=== PATIENT | female | born 1930 | race Caucasian/White ===

== ENCOUNTER → 2016-08-13 | Outpatient (CLI) | payer MEDICARE ==
--- NOTE | 2016-08-14 09:37 | RAD ---
Left lower extremity venous Doppler. History: Left lower extremity swelling, history of PE. Real-time imaging with compression, color Doppler and spectral Doppler with augmentation were utilized to evaluate the veins the left lower extremity. There is color flow in the common femoral, femoral, greater saphenous and popliteal veins. There is normal antegrade flow with augmentation. The femoral, common femoral, and popliteal veins are compressible. There is flow with color imaging and augmentation in the calf veins. Impression: 1. Left lower extremity venous Doppler negative for acute deep venous thrombosis.
== END | disposition home or self-care (01) ==
LOC: US 16:50
PROVIDERS: ATTEND Family Medicine
DX: R60.0 Localized edema (principal); I87.1 Compression of vein; Z86.711 Personal history of pulmonary embolism
CPT/HCPCS: 93971

== ENCOUNTER → 2016-09-24 | Outpatient (CLI) | payer MEDICARE ==
[~2016-09-24] MED LIST: IOHEXOL 180 MG/ML 10 ML VIAL. ONE; methylPREDNISolone ACETATE 40 MG/ML VIAL. ONE; methylPREDNISolone ACETATE 80 MG/ML VIAL. ONE
--- NOTE | 2016-09-25 09:46 | PAIN ---
DATE OF SERVICE: 09/24/2016 INITIAL CONSULTATION FOR PAIN CLINIC CHIEF COMPLAINT: Low back and left lower extremity pain. HISTORY OF PRESENT ILLNESS: This is an 86-year-old female who presents with history of pain in the low back and left lower extremity for approximately 4 months now with increasing pain across the low back and the left leg. She reports that she fell back in 02/2016, hit her face and her main complaint was face and neck pain. However, over time, this has resolved and is feeling well, but the pain in her low back is becoming more and more noticeable, especially over the last 4 months or so. The patient reports it is across the low back bilaterally, into the left lower extremity, mostly in the lateral and anterior aspect of the thigh over the knee into the medial lower leg and into the ankle with pain and burning, numbness in her foot on the left side, hurts constantly, is not exacerbated significantly constantly but is always present. The patient reports it is sharp, stabbing, throbbing, radiating, burning and aching as well. She sleeps well, however, and feels much better with lying down, much worse with standing up or sitting up. She says with changing positions from sitting to standing and getting out of bed in the morning has significant pain as well and radiating to the left lower extremity. No significant pain radiating to the right lower extremity. The patient reports no loss of motor function in the lower extremities, but significant fatigability with walking even a few steps with the left leg. She is using a wheelchair whenever she can or a cane or a walker, and she has all of these at her access. The patient reports it does not awaken her from sleep at night, most nights she sleeps well, does not affect her bowel or bladder control, but does affect her ability to walk significantly, again using walkers, wheelchairs and canes to ambulate. The patient did have an MRI scan of the lumbar spine on 07/27/2016, showing some [id number] diffuse lumbar spondylosis with some old compression fractures at L2 and L3. At the L4-L5, 2 mm anterolisthesis, mild diffuse disk bulging at both neural foramina contributing to moderately severe bilateral foraminal narrowing exaggerated due to moderate bilateral facet arthropathy, no discrete herniation. L5-S1 shows diffuse disk bulge, but no evidence of herniation or central stenosis, bilateral foraminal narrowing with anterolisthesis and severe bilateral facet arthropathy and foraminal narrowing, moderately severe on the right and severe on the left. The patient rates her disability from 0 to 10, 10 being the worst, as a 10 with family and home responsibility, 0 with recreation, 8 with social activity, 10 with occupation and 9 with self-care. The patient has been taking naproxen, gabapentin, Tylenol as well as diclofenac cream for her knees, and the naproxen and gabapentin have been helping her pain decrease fairly significantly about 30% to 40% by her estimation without side effects. The patient reports no other motor or sensory deficits, no other complaints. PAST MEDICAL HISTORY: Significant for hypertension, COPD, shortness of breath and home oxygen use at night, history of DVTs and blood clots, arthritis. PREVIOUS SURGERY: Includes bilateral total knee replacements and cataract extractions. CURRENT MEDICATIONS: Include vitamin D; naproxen; vitamin B12; citalopram; amlodipine; Xarelto, which has been discontinued; Flovent and Singulair inhalers as well. The patient reports she has been off of all of her blood thinners for more than 3 months and was on Coumadin after her knee replacement, but this was in 2007. ALLERGIES: The patient has no known drug allergies. FAMILY HISTORY: Significant for no major medical problems or conditions that she is aware of. SOCIAL HISTORY: The patient does not drink alcohol, does not smoke. She is , lives with her spouse at home and she takes care of her . who has Alzheimer's disease. She is otherwise retired and lives locally. REVIEW OF SYSTEMS: The patient's review of systems is positive for those items mentioned in the history of present illness. All systems were reviewed and are otherwise negative. It is complete, full and well documented on the patient's chart. PHYSICAL EXAMINATION: VITAL SIGNS: Today, the patient's blood pressure is 118/61, pulse is 73, respirations are 20, temperature is 98.0 degrees Fahrenheit. Height is 64 inches and weight is 166 pounds. GENERAL: The patient is awake, alert, oriented and appropriate, very pleasant demeanor. HEENT: Shows normocephalic and atraumatic. Extraocular movements are intact, symmetrical. Oral cavity, mucous membranes are moist and pink. Dentition is intact. NECK: Shows anterior throat supple without palpable lymphadenopathy noted. Swallow reflex is symmetrical. Neck shows full rotational motion of the cervical spine without difficulty or tenderness including extension, flexion and lateral rotation greater than 45 degrees, right and left. CHEST: Shows normal to inspection. Breath sounds are clear to auscultation bilaterally. HEART: Shows S1 and S2 clear. No auscultated murmurs. ABDOMEN: Normal on inspection. Soft, nontender and nondistended with palpation. No rebound or guarding demonstrated. No organomegaly detected. BACK: The patient's back shows spine grossly midline. Slight exaggeration of thoracic kyphosis and mild flattening of lumbar lordotic curvature. No previous bruises, lesions, rashes or scars are noted. Lumbar paraspinous musculature shows symmetrical on inspection with palpation, shows moderate tenderness with palpation bilaterally in the middle and lower distribution, some tenderness over the spinous processes in the middle distribution as well, but only very mildly in the lower distribution. No tenderness over the spinous processes. The patient's musculature is firm and normal in muscle girth and symmetrical, but without significant radiation, but moderate tenderness with palpation diffusely. No tenderness over the sacrum or the sacroiliac regions. The patient does show good rotational motion of the lumbar spine, both laterally as well as extension and flexion, greater than 10 degrees right and left in extension as well as forward flexion to 45 degrees without significant pain reported. EXTREMITIES: The patient's lower extremities showed deep tendon reflexes 1+ in the patellar and tendocalcaneus tendons. Motor exam is approximately 4 on a scale of 5 with left dorsiflexion and extension and 5 out of 5 on the right. Likewise, quadriceps and hamstring flexion is 4 out of 5 left, 5 out of 5 on the right, but intact. Peripheral pulses are 1+ posterior tibial and dorsalis pedis pulses. No peripheral edema is noted. No clubbing, no cyanosis. Lower extremities are warm and dry to touch, equal in color and appearance. Straight leg raise noted to be positive on the left at about 35 degrees leg raise with significant decrease that is in pain with knee flexion. The patient is able to stand, has difficulty standing from her seated position as it is difficult for her to get up from her wheelchair, but she is able to do this on her own power. She is unable to stand on her toes as she is too worried about falling as she does feel unstable. She has a significant shuffling gait and prefers to use a walker when she is ambulating. IMPRESSION: 1. This is an 86-year-old female with approximate 4-month history of increasing low back pain and left lower extremity pain in a radicular fashion. 2. MRI scan of the lumbar spine as noted. 3. Hypertension. 4. Chronic obstructive pulmonary disease. PLAN: Options were discussed with the patient and the patient's daughter and her , who accompanied her to visit today, including conservative medical management, physical therapy, interventional techniques, and she would like to pursue interventional techniques. We discussed a lumbar epidural steroid injection using description as well as anatomical models to describe the procedure. Risks were then discussed including but not limited to bleeding, infection, possibility of epidural hematoma and subsequent neurologic compromise, dural puncture, headaches, spinal cord and/or nerve damage, side effects of steroid medication, and poor results regarding pain control. The patient understands and wishes to proceed. The patient will return to clinic in approximately 2 weeks for followup, was counseled on return appointment, activity level, and side effects to be aware of. DIAGNOSES: Lumbar radiculopathy with lumbar spondylosis and lumbar degenerative disk disease. PROCEDURE: Lumbar epidural steroid injection, translaminar approach, at the L4-5 level with C-arm fluoroscopic guidance under sterile prep and drape using local anesthetic. MEDICATIONS INJECTED: 120 mg of Depo-Medrol plus 10 mL of preservative-free normal saline. CONDITION AT DISCHARGE: Stable. The patient tolerated the procedure well, had no complications. NORI HICKS MD DR: KALA/vinita JOB#: [id number] / [id number] YAYA Isaacs MD
== END | disposition home or self-care (01) ==
LOC: PNCL 09:28
PROVIDERS: ATTEND Anesthesiology
DX: M51.16 Intervertebral disc disorders with radiculopathy, lumbar region (principal); M47.16 Other spondylosis with myelopathy, lumbar region; I10 Essential (primary) hypertension; J44.9 Chronic obstructive pulmonary disease, unspecified; M19.90 Unspecified osteoarthritis, unspecified site
CPT/HCPCS: 62323; J1030; J1040

== ENCOUNTER → 2016-10-08 | Outpatient (CLI) | payer MEDICARE ==
[~2016-10-08] MED LIST changes: +AMLO5TAB2 PO; +CITA20TA5 PO; +GABA-585 PO; +NAPR375T3 PO
--- NOTE | 2016-10-09 01:22 | PAIN ---
DATE OF SERVICE: 10/08/2016 PROGRESS NOTE FOR PAIN CLINIC DIAGNOSES: Lumbar radiculopathy with lumbar degenerative disk disease, and lumbar spondylosis. HISTORY OF PRESENT ILLNESS: The patient is an 86-year-old female who returns for followup status post lumbar epidural steroid injection x 1. The patient reports about 75% improvement ____ in her low back, still has some pain in the left leg; however, with radiating pain in the anterior lateral and medial aspect of the thigh, and the medial lower leg to the ankle. The patient reports that it is worse with standing and walking, but the pain in her back is much better with standing. She has been able to stand and iron cloths and do some chores at home, where she is much more comfortable. She still has a stabbing, burning sensation in the leg, rates at 8 on a scale of 10, but again significantly improved. The patient reports no new motor or sensory deficits, no new bowel or bladder incontinence or other complaints. PHYSICAL EXAMINATION: VITAL SIGNS: The patient's blood pressure is 119/71, pulse 73, respirations 18, temperature 97.9 degrees Fahrenheit. Weight is 164 pounds. GENERAL: The patient is awake, alert, oriented, appropriate, very pleasant demeanor. The patient is accompanied by her and her daughter. HEENT: Head shows normocephalic, atraumatic. Extraocular movements are intact and symmetrical. Oral cavity shows mucous membranes moist and pink. Dentition is intact. NECK: Shows anterior throat supple without palpable lymphadenopathy noted. Swallow reflex is symmetrical. CHEST: Shows normal on inspection. Breath sounds are clear to auscultation bilaterally. HEART: Shows S1 and S2 clear. No murmurs auscultated. ABDOMEN: Soft, nontender, nondistended. BACK: Shows spine grossly midline, slight exaggeration of thoracic kyphosis and mild flattening of lumbar lordotic curvature. Lumbar paraspinous musculature shows symmetrical on inspection. With palpation, there is some moderate tenderness, but only diffusely in the lower lumbar distribution and without radiation or asymmetry. No tenderness over the sacrum or sacroiliac regions. EXTREMITIES: Lower extremities show deep tendon reflexes at 1+ in the patellar and tendo-calcaneus tendons. Motor exam is approximately 4 on a scale of 5 with left dorsiflexion and extension, 5/5 on the right. PLAN: Options were discussed with the patient. The patient's old chart was reviewed and her current medication regimen updated. Current review of systems updated today as well. We will proceed with a second lumbar epidural steroid injection today with fluoroscopic guidance. Risks were again discussed including, but not limited to bleeding, infection, possibility of epidural hematoma, subsequent neurologic compromise, dural puncture, headaches, spinal cord and/or nerve damage, side effects of steroid medication and poor results regarding pain control. The patient understands and wishes to proceed. The patient will return to clinic in approximately 2 weeks for followup, was counseled on return appointment, activity level and side effects to be aware of. DIAGNOSES: Lumbar radiculopathy, lumbar spondylosis, lumbar degenerative disk disease. PROCEDURES: Lumbar epidural steroid injection in translaminar approach at the L5-S1 level using C-arm fluoroscopic guidance under sterile prep and drape, with local anesthetic. MEDICATIONS INJECTED: 120 mg Depo-Medrol plus 10 mL of preservative-free normal saline and 2 mL of Isovue for contrast. CONDITION AT DISCHARGE: Stable. The patient tolerated procedure well, had no complications. NORI HICKS MD DR: KALA/vinita JOB#: [id number] / [id number]
== END | disposition home or self-care (01) ==
LOC: PNCL 08:40
PROVIDERS: ATTEND Anesthesiology
DX: M51.16 Intervertebral disc disorders with radiculopathy, lumbar region (principal); M47.26 Other spondylosis with radiculopathy, lumbar region
CPT/HCPCS: 62323; J1030; J1040

== ENCOUNTER → 2016-11-12 | Outpatient (CLI) | payer MEDICARE ==
--- NOTE | 2016-11-13 01:52 | PN ---
DATE: 11/12/2016 DIAGNOSES: Lumbar radiculopathy with lumbar degenerative disk disease and lumbar spondylosis. HISTORY OF PRESENT ILLNESS: The patient is an 86-year-old female who returns for followup status post lumbar epidural steroid injections x 2. The patient reports about 75% improvement after the first injection, second injection not as effective, about 50% improvement overall. The patient reports still some pain in the low back, left lower extremity. She had previously reports still doing better, but still some significant pain in the low back, left leg, mostly in the left posterior and lateral thigh, posterior and anterior lower leg to the level of the foot on the left side only. The patient reports the pain as 7 on a scale of 10 at worst, constant aching pain. She is walking better, but still some significant pain with walking. The patient reports she is sleeping well at night and has increased her activity to a fair extent, but still with the persistent pain. The patient reports no new motor or sensory deficits, no new bowel or bladder incontinence or other complaints. PHYSICAL EXAMINATION: VITAL SIGNS: The patient's blood pressure is 147/65, pulse 62, respirations 20, temperature 97.3 degrees Fahrenheit, and weight is 165 pounds. GENERAL: The patient is awake, alert, oriented, appropriate, very pleasant demeanor. The patient is accompanied by her daughter and her spouse. HEENT: Shows normocephalic and atraumatic. The patient wears eyeglasses. Extraocular movements are intact and symmetrical. Oral cavity shows mucous membranes moist and pink. Dentition is intact. NECK: Shows anterior throat supple without palpable lymphadenopathy noted. Swallow reflex is symmetrical. CHEST: Shows normal on inspection. Breath sounds are clear to auscultation bilaterally. HEART: Shows S1 and S2 clear. No murmurs are auscultated. ABDOMEN: Soft, nontender, and nondistended. BACK: Shows spine grossly in the midline, slight exaggeration of thoracic kyphosis and mild flattening of lumbar lordotic curvature. Lumbar paraspinous musculature shows symmetrical on inspection without atrophy, hypertrophy with palpation, shows some moderate to tenderness to palpation, but only diffusely in the lumbar paraspinous muscles bilaterally without radiation. The patient shows good rotation and motion of the lumbar spine, both laterally as well as extension and flexion. EXTREMITIES: Lower extremities showed deep tendon reflexes 1+ in the patellar and tendo calcaneus tendons. Motor exam is strong with a 4/5, left and 5/5 dorsiflexion and extension. Options were discussed with the patient. We will proceed with a third lumbar epidural steroid injection today with fluoroscopic guidance. Risks were again discussed including, but not limited to bleeding, infection, possibility of epidural hematoma, subsequent neurologic compromise, dural puncture, headaches, spinal cord and/or nerve damage, side effects of steroid medication and poor results regarding pain control. The patient understands and wishes to proceed. The patient will return to clinic in approximately 2 weeks for followup, was counseled on return appointment, activity level and side effects to be aware of. We also discussed ____ physical therapy may help in the future if not significantly improved after today's injection, she is interested in pursuing this. We discussed this with her and her family as well. DIAGNOSIS: Lumbar radiculopathy with lumbar degenerative disk disease, lumbar spondylosis. PROCEDURES: Lumbar epidural steroid injection in translaminar approach at the L5-S1 level using C-arm fluoroscopic guidance under sterile prep and drape beatings local anesthesia. MEDICATION INJECTED: Depo-Medrol 120 mg plus 10 mL of preservative-free normal saline and 2 mL of Isovue for contrast. CONDITION AT DISCHARGE: Stable. The patient tolerated the procedure well, had no complications. NORI HICKS MD DR: KALA/vinita JOB#: [id number] / [id number]
== END ==
LOC: PNCL 09:34
PROVIDERS: ATTEND Anesthesiology
DX: M51.16 Intervertebral disc disorders with radiculopathy, lumbar region (principal); M47.896 Other spondylosis, lumbar region
CPT/HCPCS: 62323; J1030; J1040

== ENCOUNTER 2017-01-20 11:51 | Inpatient (IN) | payer MEDICARE ==
[~2017-01-20] VITALS: Ht 162.6 cm; Wt 69.9 kg
[~2017-01-20 11:51] MED LIST changes: -IOHEXOL 180 MG/ML 10 ML VIAL. ONE; -methylPREDNISolone ACETATE 40 MG/ML VIAL. ONE; -methylPREDNISolone ACETATE 80 MG/ML VIAL. ONE
--- NOTE | 2017-01-20 12:41 | ED.ADGEN ---
Past Medical History Past Medical History: Anxiety, COPD, Depression, DVT, Hypertension, Other Additional Past Medical Histor: pe Past Surgical History: Knee Replacement, Other Additional Past Surgical Histo: BILATERA KNEE REPLACEMENT Alcohol Use: None Drug Use: None Adult General Chief Complaint Chief Complaint: BLOODY STOOL [facility] HPI Patient is a 86 year old with history of anxiety COPD and hypertension who presents with 3 episodes of bloody stools this morning. Stools are described as soft, coated with dark red to light red-colored blood. Small amount of clots present on tissue paper and in toilet. Patient denies dizziness lightheadedness , chest pain shortness of breath abdominal pain. She is not on anticoagulation or antiplatelet therapy. Shet has remote history of colitis. She has previous colonoscopy in the past 5 years but does not recall any abnormal results. Patient's accompanied at bedside by spouse and daughter. Review of Systems Review of Systems ROS as per [facility] Allergies Allergies Allergies Coded Allergies Type Severity Reaction Last Updated Verified No Known Drug Allergies 10/08/16 No Physical Exam Physical Exam Constitutional: Well developed, well nourished, no acute distress, non-toxic appearance. HENT: Normocephalic, atraumatic, bilateral external ears normal, oropharynx moist, no oral exudates, nose normal. Eyes: PERRLA, EOMI, conjunctiva normal, no discharge. Neck: Normal range of motion, no tenderness. Cardiovascular:Heart rate regular rhythm, no murmur. Lungs & Thorax: Bilateral breath sounds clear to auscultation. Abdomen: Bowel sounds normal, soft, no tenderness. Skin: Warm, dry. Back: No tenderness, no CVA tenderness. Extremities: No tenderness. Neurologic: Alert and oriented X 3, normal motor function, normal sensory function, no focal deficits noted. Psychologic: Affect, anxious. Current Patient Data Vital Signs Vital Signs Date Time Temp Pulse Resp B/P (MAP) Pulse Ox O2 Delivery O2 Flow Rate FiO2 01/20/17 13:40 62 21 158/73 (101) 91 Nasal Cannula 2.0 01/20/17 12:15 97.6 97.6 Lab Values Laboratory Tests Test 01/20/17 12:40 White Blood Count 7.1 x10^3/uL (4.0-11.0) Red Blood Count 3.35 x10^6/uL (3.50-5.40) L Hemoglobin 9.6 g/dL (12.0-15.5) L Hematocrit 29.3 % (36.0-47.0) L Mean Corpuscular Volume 87 fL (79-100) Mean Corpuscular Hemoglobin 29 pg (25-35) Mean Corpuscular Hemoglobin Concent 33 g/dL (31-37) Red Cell Distribution Width 14.6 % (11.5-14.5) H Platelet Count 237 x10^3/uL (140-400) Neutrophils (%) (Auto) 75 % (31-73) H Lymphocytes (%) (Auto) 15 % (24-48) L Monocytes (%) (Auto) 7 % (0-9) Eosinophils (%) (Auto) 3 % (0-3) Basophils (%) (Auto) 1 % (0-3) Neutrophils # (Auto) 5.3 x10^3uL (1.8-7.7) Lymphocytes # (Auto) 1.0 x10^3/uL (1.0-4.8) Monocytes # (Auto) 0.5 x10^3/uL (0.0-1.1) Eosinophils # (Auto) 0.2 x10^3/uL (0.0-0.7) Basophils # (Auto) 0.1 x10^3/uL (0.0-0.2) Prothrombin Time 14.6 SEC (11.7-14.0) H Prothrombin Time INR 1.2 (0.8-1.1) H Stool Occult Blood Positive (NEG) Sodium Level 139 mmol/L (136-145) Potassium Level 4.7 mmol/L (3.5-5.1) Chloride Level 105 mmol/L (98-107) Carbon Dioxide Level 25 mmol/L (21-32) Anion Gap 9 (6-14) Blood Urea Nitrogen 36 mg/dL (7-20) H Creatinine 1.4 mg/dL (0.6-1.0) H Estimated GFR (Cockcroft-Gault) 35.6 BUN/Creatinine Ratio 26 (6-20) H Glucose Level 117 mg/dL (70-99) H Calcium Level 8.8 mg/dL (8.5-10.1) Total Bilirubin 0.4 mg/dL (0.2-1.0) Aspartate Amino Transferase (AST) 18 U/L (15-37) Alanine Aminotransferase (ALT) 20 U/L (14-59) Alkaline Phosphatase 100 U/L (46-116) Total Protein 6.2 g/dL (6.4-8.2) L Albumin 3.3 g/dL (3.4-5.0) L Albumin/Globulin Ratio 1.1 (1.0-1.7) Laboratory Tests 01/20/17 12:40 Laboratory Tests 01/20/17 12:40 EKG EKG [] Radiology/Procedures Radiology/Procedures [CT abdomen pelvis] Course & Med Decision Making Course & Med Decision Making Pertinent Labs and Imaging studies reviewed. (See chart for details) [Lower GI bleed with significant drop in hemoglobin. Her hemoglobin is 9.6 which represents approximately 3.5 g drop from most recent lab July 2016. His vital signs are stable. She is not on anticoagulation or antiplatelet therapy. Will admit admit to the patient's PCP, Dr. Sterling Byrd for further evaluation and anticipated GI consultation.] Dragon Disclaimer Dragon Disclaimer This electronic medical record was generated, in whole or in part, using a voice recognition dictation system. MACRINA THOMPSON DO Jan 20, 2017 12:41
[2017-01-20 12:56] LABS: BASO # 0.1 x10^3/uL (0.0-0.2); BASO % 1 % (0-3); EOS % 3 % (0-3); HEMATOCRIT 29.3 % (36.0-47.0); HEMOGLOBIN 9.6 g/dL (12.0-15.5); LYMPH % 15 % (24-48); MEAN CORPUSCULAR HEMOGLOBIN 29 pg (25-35); MEAN CORPUSCULAR HGB CONC 33 g/dL (31-37); MEAN CORPUSCULAR VOLUME 87 fL (79-100); MONO % 7 % (0-9); NEUT % 75 % (31-73); PLATELET COUNT 237 x10^3/uL (140-400); RED BLOOD COUNT 3.35 x10^6/uL (3.50-5.40); RED CELL DISTRIBUTION WIDTH 14.6 % (11.5-14.5); WHITE BLOOD COUNT 7.1 x10^3/uL (4.0-11.0)
[2017-01-20 13:00] LABS: NEG OBC FOB NEG; POS OBC FOB POS
[2017-01-20 13:04] LABS: CALCIUM 8.8 mg/dL (8.5-10.1); CREATININE 1.4 mg/dL (0.6-1.0); GFR 35.6; POTASSIUM 4.7 mmol/L (3.5-5.1)
[2017-01-20 13:07] LABS: INR 1.2 (0.8-1.1); PROTHROMBIN TIME PATIENT 14.6 SEC (11.7-14.0)
[2017-01-20 13:18] LABS: ALBUMIN 3.3 g/dL (3.4-5.0); ALBUMIN/GLOBULIN RATIO 1.1 (1.0-1.7); TOTAL BILIRUBIN 0.4 mg/dL (0.2-1.0); TOTAL PROTEIN 6.2 g/dL (6.4-8.2)
--- NOTE | 2017-01-20 13:57 | ACF ---
Admission Forms Criteria GASTROINTESTINAL BLEEDING Clinical Indications for Inpatient Care (Place 'X' for any and all applicable criteria): Ongoing inpatient care may be indicated for gastrointestinal bleeding with ANY ONE of the following (4)(20)(21)(22)(23)(24): [X ]I. Active bleeding (eg, fresh voluminous blood in emesis or nasogastric aspirate, or per rectum) [ ]II. Hemodynamic instability [ ]III. Anticoagulation therapy or coagulopathy ((eg, advanced liver disease, irreversible anticoagulation) [ ]IV. Ischemic colitis (22) [ ]V. Endoscopy showing arterial bleeding, adherent clot, nonbleeding visible vessel, varices, flat red spots, ulcer size greater than 2 cm, or portal hypertensive gastropathy [ ]. High-risk low platelet count [ ]VII. Anemia requiring inpatient care as indicated by ANY ONE of the following a)[ ] Cognitive impairment b)[ ] Syncope c)[ ] Heart failure d)[ ] Chest pain e)[ ] Dyspnea f)[ ] Other findings suggesting inadequate perfusion (eg, peripheral or myocardial ischemia, end organ dysfunction) [ ]VIII. High-risk low platelet count [ ]IX. Suspected variceal cause of bleeding as indicated by ANY ONE of the following(27)(28): a)[ ] Known varices b)[ ] Hepatomegaly or splenomegaly c)[ ] Ascites d)[ ] Jaundice or scleral icterus e)[ ] History of liver disease (eg, cirrhosis) f)[ ] Physical findings of portal hypertension (eg, caput medusa) g)[ ] Comorbid disorder indicating risk for portal vein thrombosis (eg , abdominal surgery, sepsis, shock, exchange transfusion, prior umbilical vein catheterization) Extended stay may be needed until ALL of the following are present(20)(38)(47): [ ]a) Hemodynamic stability [ ]b) No evidence of active bleeding (eg, stable Hematocrit) [ ]c) Platelet count, prothrombin time, and partial thromboplastin time acceptable for next level of care [ ]d) Surgical or other acute intervention not needed [ ]e) Oral hydration and diet tolerated The original [employer] content created by Ozzy Amador has been revised. The portions of the content which have been revised are identified through the use of italic text or in bold, and Ozzy Amador has neither reviewed nor approved the modified material. All other unmodified content is copyright [facility]. Please see references footnoted in the original [facility] edition 2016 Admission Criteria Met?: Yes ELINA BRANDT Jan 20, 2017 13:57
[2017-01-20] MEDS ORDERED: IV NORMAL SALINE 1000ML BAG 1,000 ML IV ONE (14:30)
--- NOTE | 2017-01-20 15:25 | RAD ---
CT scan of the abdomen and pelvis without contrast 01/20/2017 Clinical history: GI Bleeding. Technique: Unenhanced, contiguous, 5 mm axial sections were obtained through the abdomen and pelvis. One or more of the following individualized dose reduction techniques were utilized for this study: 1. Automated exposure control. 2. Adjustment of the mA and/or kV according to patient size. 3. Use of iterative reconstruction technique. Findings: Comparison study dated 06/14/2008. Images through the lung bases demonstrate mild to moderate cardiomegaly. Areas of subsegmental atelectasis and/or scarring are seen involving the right middle lobe, the lingula and both lower lobes, right greater than left. There is a moderate to large sized hiatal hernia. The liver, spleen, pancreas adrenal glands and kidneys are within normal limits. Moderate atherosclerotic calcification abdominal aorta is seen. The abdominal aorta tapers normally. No free fluid or free air is seen within the abdomen. Air and stool is seen throughout the colon. There is no evidence of bowel obstruction. Multiple diverticula are seen involving the sigmoid colon. No inflammatory changes are seen in the adjacent fat. Images through the pelvis demonstrate the urinary bladder distended with urine. Calcifications are seen within the pelvis consistent with phleboliths. No free fluid is seen. Degenerative changes are seen involving the lower thoracic and throughout the lumbar spine and both hips. Moderate anterolisthesis L5 in relation to S1 is seen. Old appearing compression fractures of T11, T12, L2 and L3 vertebral bodies is noted. Impression: 1. Sigmoid diverticulosis. 2. No acute abnormality is seen.
[2017-01-20 16:40] VITALS: BP 157/67
[2017-01-20] MEDS ORDERED: CYAN10002 IM (18:36)
[2017-01-20] MEDS ORDERED: BISA-42 PO (18:36)
[2017-01-20 19:00] VITALS: BP 154/79
[2017-01-20 23:00] VITALS: BP 125/64
[2017-01-21] VITALS (7 sets, daily range): BP systolic 82–145; BP diastolic 43–73
[2017-01-21 05:22] LABS: BASO # 0.1 x10^3/uL (0.0-0.2); BASO % 1 % (0-3); EOS % 4 % (0-3); HEMATOCRIT 25.2 % (36.0-47.0); HEMOGLOBIN 8.2 g/dL (12.0-15.5); LYMPH # 0.9 x10^3/uL (1.0-4.8); LYMPH % 16 % (24-48); MEAN CORPUSCULAR HEMOGLOBIN 28 pg (25-35); MEAN CORPUSCULAR HGB CONC 32 g/dL (31-37); MEAN CORPUSCULAR VOLUME 87 fL (79-100); MONO % 8 % (0-9); NEUT % 71 % (31-73); PLATELET COUNT 228 x10^3/uL (140-400); RED BLOOD COUNT 2.91 x10^6/uL (3.50-5.40); RED CELL DISTRIBUTION WIDTH 14.9 % (11.5-14.5); WHITE BLOOD COUNT 5.5 x10^3/uL (4.0-11.0)
[2017-01-21 06:40] LABS: CALCIUM 8.4 mg/dL (8.5-10.1); GFR 52.4; POTASSIUM 4.7 mmol/L (3.5-5.1)
--- NOTE | 2017-01-21 08:30 | ACF ---
Admission Forms Criteria GASTROINTESTINAL BLEEDING Clinical Indications for Inpatient Care (Place 'X' for any and all applicable criteria): Ongoing inpatient care may be indicated for gastrointestinal bleeding with ANY ONE of the following (4)(20)(21)(22)(23)(24): [X]I. Active bleeding (eg, fresh voluminous blood in emesis or nasogastric aspirate, or per rectum) [ ]II. Hemodynamic instability [ ]III. Anticoagulation therapy or coagulopathy ((eg, advanced liver disease, irreversible anticoagulation) [ ]IV. Ischemic colitis (22) [ ]V. Endoscopy showing arterial bleeding, adherent clot, nonbleeding visible vessel, varices, flat red spots, ulcer size greater than 2 cm, or portal hypertensive gastropathy [ ]. High-risk low platelet count [ ]VII. Anemia requiring inpatient care as indicated by ANY ONE of the following a)[ ] Cognitive impairment b)[ ] Syncope c)[ ] Heart failure d)[ ] Chest pain e)[ ] Dyspnea f)[ ] Other findings suggesting inadequate perfusion (eg, peripheral or myocardial ischemia, end organ dysfunction) [ ]VIII. High-risk low platelet count [ ]IX. Suspected variceal cause of bleeding as indicated by ANY ONE of the following(27)(28): a)[ ] Known varices b)[ ] Hepatomegaly or splenomegaly c)[ ] Ascites d)[ ] Jaundice or scleral icterus e)[ ] History of liver disease (eg, cirrhosis) f)[ ] Physical findings of portal hypertension (eg, caput medusa) g)[ ] Comorbid disorder indicating risk for portal vein thrombosis (eg , abdominal surgery, sepsis, shock, exchange transfusion, prior umbilical vein catheterization) Extended stay may be needed until ALL of the following are present(20)(38)(47): [ ]a) Hemodynamic stability [ ]b) No evidence of active bleeding (eg, stable Hematocrit) [ ]c) Platelet count, prothrombin time, and partial thromboplastin time acceptable for next level of care [ ]d) Surgical or other acute intervention not needed [ ]e) Oral hydration and diet tolerated The original [employer] content created by Ozzy Amador has been revised. The portions of the content which have been revised are identified through the use of italic text or in bold, and Ozzy Amador has neither reviewed nor approved the modified material. All other unmodified content is copyright [facility]. Please see references footnoted in the original [facility] edition 2016 Admission Criteria Met?: Yes MAYANK ESPINOZA. Jan 21, 2017 08:30
[2017-01-21] MEDS: GABAPENTIN 100 MG CAPSULE. PO SCH ×3 (09:09→21:58)
[2017-01-21] MEDS: amLODIPine BESYLATE 5 MG TABLET PO SCH (09:09)
[2017-01-21] MEDS: CITALOPRAM 20 MG TABLET. PO SCH (09:09)
--- NOTE | 2017-01-21 09:10 | PDOC ---
Provider Note Provider Note [id number] YAYA BARRERA MD Jan 21, 2017 09:10
--- NOTE | 2017-01-21 09:56 | HP ---
ADMIT DATE: 01/20/2017 CHIEF COMPLAINT: Hematochezia. HISTORY OF PRESENT ILLNESS: An 86-year-old white female with history of mild oxygen dependent COPD and pernicious anemia, who presented with about 3 episodes of bright red rectal bleeding, not associated with change in bowel habits, weight loss, fever, pain, or other symptoms. Hemoglobin dropped from 13-9.2 and it is down to 8.2 overnight with some more blood in her stool present. Her last colonoscopy was in 2002 and as far as we know it is normal. She has had no other specific symptoms lately and has never had a GI bleed before. PAST MEDICAL HISTORY: She had been on oxygen for a long time after pulmonary emboli sometime 5-7 years ago. Pernicious anemia has been treated with B12 shots for 5-6 years and she is on a few other meds. ALLERGIES: None. PAST SURGICAL HISTORY: No other significant surgery. SOCIAL HISTORY: Nonsmoker, , not physically active, nondrinker. FAMILY HISTORY: Unremarkable. REVIEW OF SYSTEMS: No other specific complaints. OBJECTIVE: ENT: Mild pallor; otherwise, all within normal limits. NECK: No masses, nodes, or bruits. LUNGS: Clear, decreased breath sounds. No wheezes are heard. CARDIOVASCULAR: Regular rate. Grade 2 systolic murmur. No S3. ABDOMEN: Soft, benign, and nontender. RECTAL: Deferred. EXTREMITIES: Good pedal and radial pulses. No joint or skin lesions. Nail beds are pale. NEUROLOGIC: Physiologic and nonfocal. ASSESSMENT: 1. Ongoing hematochezia with progressive anemia. Diverticular bleed among others would be the most likely source. 2. History of chronic lung disease, likely secondhand smoke and secondary hypoxia, on home oxygen therapy. 3. History of pernicious anemia treated. 4. Hypertension. PLAN: GI bleeding, scan. Serial hemoglobin and hematocrit monitoring, and may need transfusions. Consultation with GI and Pulmonary ordered as well. YAYA BARRERA MD DR: SAMIA/vinita JOB#: [id number] / [id number]
--- NOTE | 2017-01-21 10:40 | PDOC2 ---
GI CONSULT Reason For Consult: GI Bleed HPI: HPI: 86 y/o female reports h/o intermittent constipation treated w/ Miralax PRN. Yesterday morning passed significant amount of red blood w/ stool, then passed only red blood clots. Per PCP note, Hgb was previous 13, on admission was 9.2, now 8.2. She has had two more episodes of bleeding overnight but believes it is slowing. Per RN, small amount of stool surround by red blood earlier. Had some low back pain, but no abdominal pain. No n/v, reflux/heartburn, diarrhea. Has lost weight over the years, still has a good appetite. Cares for her w/ Alzheimer's at home. Is "always" SOA, on O2 at home. No dizziness, chest pain. H/o pernicious anemia on B12 injections. Denies NSAIDs. On clears. Colonoscopy 2002: left-sided diverticulosis, internal hemorrhoids. EGD 2009: hiatal hernia, paraesophageal hernia, atrophic gastritis, normal small bowel. PMH: PMH: anemia, HTN, OA, COPD, PE/DVT, back pain, depression/anxiety, ?hernia surgery, bilateral knee surgeries FH: Family History: Cancer (colon - sibling), CAD Social History: Smoke: No ALCOHOL: none ROS: GEN: Denies fevers, chills, sweats HEENT: Denies blurred vision, sore throat CV: Denies chest pain RESP: +SOA GI: Per HPI : Denies hematuria, dysuria ENDO: +weight changes NEURO: Denies confusion, dizziness MSK: +back pain SKIN: Denies jaundice, pruritus Vitals: Vitals: Vital Signs Date Time Temp Pulse Resp B/P (MAP) Pulse Ox O2 Delivery O2 Flow Rate FiO2 01/21/17 09:09 72 129/65 01/21/17 07:00 98.2 20 98 Room Air 98.2 01/20/17 20:00 2.0 Labs: Labs: Laboratory Tests Test 01/20/17 12:40 01/21/17 04:23 White Blood Count 7.1 x10^3/uL (4.0-11.0) 5.5 x10^3/uL (4.0-11.0) Red Blood Count 3.35 x10^6/uL (3.50-5.40) 2.91 x10^6/uL (3.50-5.40) Hemoglobin 9.6 g/dL (12.0-15.5) 8.2 g/dL (12.0-15.5) Hematocrit 29.3 % (36.0-47.0) 25.2 % (36.0-47.0) Mean Corpuscular Volume 87 fL (79-100) 87 fL (79-100) Mean Corpuscular Hemoglobin 29 pg (25-35) 28 pg (25-35) Mean Corpuscular Hemoglobin Concent 33 g/dL (31-37) 32 g/dL (31-37) Red Cell Distribution Width 14.6 % (11.5-14.5) 14.9 % (11.5-14.5) Platelet Count 237 x10^3/uL (140-400) 228 x10^3/uL (140-400) Neutrophils (%) (Auto) 75 % (31-73) 71 % (31-73) Lymphocytes (%) (Auto) 15 % (24-48) 16 % (24-48) Monocytes (%) (Auto) 7 % (0-9) 8 % (0-9) Eosinophils (%) (Auto) 3 % (0-3) 4 % (0-3) Basophils (%) (Auto) 1 % (0-3) 1 % (0-3) Neutrophils # (Auto) 5.3 x10^3uL (1.8-7.7) 3.9 x10^3uL (1.8-7.7) Lymphocytes # (Auto) 1.0 x10^3/uL (1.0-4.8) 0.9 x10^3/uL (1.0-4.8) Monocytes # (Auto) 0.5 x10^3/uL (0.0-1.1) 0.5 x10^3/uL (0.0-1.1) Eosinophils # (Auto) 0.2 x10^3/uL (0.0-0.7) 0.2 x10^3/uL (0.0-0.7) Basophils # (Auto) 0.1 x10^3/uL (0.0-0.2) 0.1 x10^3/uL (0.0-0.2) Prothrombin Time 14.6 SEC (11.7-14.0) Prothromb Time International Ratio 1.2 (0.8-1.1) Stool Occult Blood Positive (NEG) Sodium Level 139 mmol/L (136-145) 143 mmol/L (136-145) Potassium Level 4.7 mmol/L (3.5-5.1) 4.7 mmol/L (3.5-5.1) Chloride Level 105 mmol/L (98-107) 111 mmol/L (98-107) Carbon Dioxide Level 25 mmol/L (21-32) 27 mmol/L (21-32) Anion Gap 9 (6-14) 5 (6-14) Blood Urea Nitrogen 36 mg/dL (7-20) 28 mg/dL (7-20) Creatinine 1.4 mg/dL (0.6-1.0) 1.0 mg/dL (0.6-1.0) Estimated GFR (Cockcroft-Gault) 35.6 52.4 BUN/Creatinine Ratio 26 (6-20) Glucose Level 117 mg/dL (70-99) 83 mg/dL (70-99) Calcium Level 8.8 mg/dL (8.5-10.1) 8.4 mg/dL (8.5-10.1) Total Bilirubin 0.4 mg/dL (0.2-1.0) Aspartate Amino Transf (AST/SGOT) 18 U/L (15-37) Alanine Aminotransferase (ALT/SGPT) 20 U/L (14-59) Alkaline Phosphatase 100 U/L (46-116) Total Protein 6.2 g/dL (6.4-8.2) Albumin 3.3 g/dL (3.4-5.0) Albumin/Globulin Ratio 1.1 (1.0-1.7) Allergies: Coded Allergies: No Known Drug Allergies (Unverified , 10/08/16) Medications: Current Medications Medications (Trade) Dose Ordered Sig/Julio Route PRN Reason Start Time Stop Time Status Last Admin Dose Admin Sodium Chloride 1,000 ml @ 1,000 mls/hr 1X ONCE IV 01/20/17 14:30 01/20/17 15:29 DC 01/20/17 14:36 Amlodipine Besylate (Norvasc) 5 mg DAILY PO 01/21/17 09:00 01/21/17 09:09 Citalopram Hydrobromide (CeleXA) 20 mg DAILY PO 01/21/17 09:00 01/21/17 09:09 Gabapentin (Neurontin) 100 mg TID PO 01/21/17 09:00 01/21/17 09:09 Imaging: Imaging: CT A/P Impression: 1. Sigmoid diverticulosis. 2. No acute abnormality is seen. Chest CT PENDING PE: GEN: NAD HEENT: Atraumatic, PERRL LUNGS: decreased anteriorly, nasal cannula HEART: RRR +murm ABD: NABS, S/ND/NT EXTREMITY: No edema SKIN: No rashes, no jaundice NEURO/PSYCH: A & O 3 A/P: A/P: Hematochezia -onset yesterday morning, several episodes of passing bright red blood/clots, now slowing Constipation -intermittent, improved w/ Miralax PRN Diverticulosis, internal hemorrhoids CRC screen -colonoscopy 2002 Hiatal hernia H/o pernicious anemia, on B12 inj -Hgb apparently was 13, 9.2 on admission, 8.2 today COPD -per pulm -- Will review w/ Dr. Orozco - ?diverticular bleed Hgb has dropped, bleeding slowing. Continue clears for now, monitor labs/symptoms. ?bleeding scan if persists SABRINA CONNELL Jan 21, 2017 10:40
[2017-01-21] MEDS: IPRATRPIUM/ALBUTEROL 0.5/2.5MG 3 ML NEBU. NEB SCH ×3 (11:23→21:02)
--- NOTE | 2017-01-21 12:21 | RAD ---
CT of the chest without contrast, 01/21/2017: History: Hypoxia Noncontrast scans were obtained as requested. Comparison is made to a study from 10/22/2007. There is a large hiatal hernia with the majority of the stomach lying in the lower chest. There is moderate calcific plaquing of the thoracic aorta without evidence of aneurysm. Mild scattered coronary artery calcifications are present. No mediastinal adenopathy is evident. The main pulmonary artery is mildly enlarged measuring just over 4 cm in width. It is larger than the adjacent ascending aorta. The appearance raises the possibility of pulmonary hypertension in this patient with a history of prior pulmonary emboli. There are scattered linear opacities in both lungs compatible with scarring and/or atelectasis. These opacities are most prominent in the right lung base. There is mild mosaic attenuation in the lungs. This is probably related to the history of pulmonary emboli. No pulmonary mass is identified. There is no evidence of pleural fluid. Moderate multilevel degenerative change is present in the spine. There are several vertebral compression deformities in the lower thoracic and lumbar spine which were not evident in 2007. The age of these fractures is unclear. IMPRESSION: 1. Large hiatal hernia. 2. Calcific plaquing of the aorta and coronary arteries. 3. Mild enlargement of the main pulmonary artery as well as mild mosaic attenuation in both lungs, probably related to the history of pulmonary emboli. 4. Mild linear scarring and/or atelectasis in both lungs. 5. Lower thoracic and upper lumbar vertebral compression deformities of indeterminate ages. PQRS Compliance Statement: One or more of the following individualized dose reduction techniques were utilized for this examination: 1. Automated exposure control 2. Adjustment of the mA and/or kV according to patient size 3. Use of iterative reconstruction technique
--- NOTE | 2017-01-21 14:11 | PDOC ---
Provider Note Provider Note dictated ESTEFANIA ESPINAL MD Jan 21, 2017 14:11
--- NOTE | 2017-01-21 14:30 | CONS ---
DATE OF CONSULTATION: 01/20/2017 ATTENDING PHYSICIAN: Dr. Sterling Byrd. REASON FOR CONSULTATION: Dyspnea and hypoxia. HISTORY OF PRESENT ILLNESS: The patient is an 86-year-old female who has history of chronic respiratory failure, on home oxygen at 2 liters. She also has history of large PE in 2007 which was appropriately treated with anticoagulation and was subsequently taken off. She also had DVT at that time. She was brought into the hospital after she had noticed episodes of bloody stool. Gastroenterology has been consulted. I have been asked to see her at the request of her daughter because of fatigue and shortness of air and hypoxia during the last few months. The patient uses oxygen 2 to 3 liters on a p.r.n. basis. Daughter states that whenever she has checked the pulse oximeter it has at times been in the 80s. She denies any chest pains. No cough, no fever, no chills, no chest pain. She denies any significant history of tobacco use. The patient had a CT chest which was reviewed by me. This was done without contrast. She had a large hiatal hernia. She has mild pulmonary hypertension. She has some basilar atelectasis, more so on the right lower lobe. The patient has never been tested for sleep apnea. PAST MEDICAL HISTORY: History of anxiety and depression, history of DVT and pulmonary embolism in 2007, was treated with anticoagulation; and history of systemic hypertension. PAST SURGICAL HISTORY: Knee replacement. ALLERGIES: None. CURRENT MEDICATIONS: Reviewed as listed in the MRAD including DuoNeb. FAMILY HISTORY: Noncontributory. SOCIAL HISTORY: Denies any tobacco use. PHYSICAL EXAMINATION: VITAL SIGNS: Pulse ox 94% on 2 liters. T-max of 99. Blood pressure is 136/63. HEENT: Sclerae nonicteric. NECK: Supple. LUNGS: Diminished breath sounds. CARDIOVASCULAR: Regular rate and rhythm. ABDOMEN: Soft. EXTREMITIES: With no pitting edema. LABORATORY DATA: Reviewed. White cell count is 5.5. Hemoglobin is trending down to 8.2. BUN is 28, creatinine 1.0. IMPRESSION: 1. Chronic dyspnea with exertion associated with fatigue and hypoxia. This may be related to anemia. However, the possibility of recurrent thromboembolic disease cannot be completely ruled out. This is a patient who had pulmonary embolism in 2007 and deep venous thrombosis at that time which was all appropriately treated but were unprovoked. We will do a V/Q scan today. 2. Ongoing gastrointestinal bleed. Gastroenterology has been consulted and further recommendations to follow per Gastroenterology. 3. No significant history of tobacco use. 4. Chronic hypoxic respiratory failure, on home oxygen 2-3 liters. With recent increase in oxygen requirements, per the patient's doctors history. 5. Abnormal CT chest without contrast with large hiatal hernia and mild atelectasis at the right base. No significant interstitial lung disease. RECOMMENDATIONS: 1. Continue with present oxygen to keep saturation 92% to 94%. 2. Obtain V/Q scan to rule out any recurrent thromboembolic disease and obtain venous Dopplers of lower extremities as well. 3. Follow Gastroenterology recommendations. 4. If patient is found to have any thromboembolic disease, then she may benefit from IVC filter. She may not be the best candidate for anticoagulation due to her gastrointestinal bleed. 5. Once her hemoglobin is stable and if she continues to have fatigue and weakness, then a sleep study can be considered as an outpatient. Discussed with the patient's daughter. ESTEFANIA ESPINAL MD DR: SUKUMAR/vinita JOB#: [id number] / [id number] EDY
--- NOTE | 2017-01-21 16:07 | RAD ---
Radionuclide GI bleeding scan, 01/21/2017: History: Right rib blood The study was performed utilizing 31 mCi of technetium 99m and a labeled red blood cell technique. Imaging of the abdomen and pelvis out to one hour shows no abnormal accumulation of activity in the GI tract to suggest active bleeding. Normal urinary tract activity is evident. IMPRESSION: Negative radionuclide GI bleeding study.
--- NOTE | 2017-01-21 16:36 | RAD ---
Bilateral lower extremity venous duplex study 01/21/2017 Clinical history: History of DVT with shortness of breath.. Technique: Using a combination of real time ultrasound imaging and color-flow and pulse Doppler imaging techniques along with graded compression and augmentation, duplex evaluation of the deep venous system of the both lower extremities was performed. Multiple images were obtained. Findings: Echogenic thrombus consistent with occlusive DVT is seen extending from superior right posterior tibial veins to involve the inferior right popliteal vein. The right superficial femoral and right common femoral vein are patent. There is no sonographic evidence of deep venous thrombosis involving the visualized deep venous structures of the left lower extremity. Thrombosis of the left greater saphenous vein is seen. Impression: 1. DVT is seen involving the right posterior tibial veins to involve the right popliteal vein. 2. Thrombosis of the left greater saphenous vein.
[2017-01-21 19:58] LABS: HEMOGLOBIN 8.3 g/dL (12.0-15.5); RED BLOOD COUNT 2.92 x10^6/uL (3.50-5.40); RED CELL DISTRIBUTION WIDTH 14.7 % (11.5-14.5); WHITE BLOOD COUNT 6.7 x10^3/uL (4.0-11.0)
[2017-01-22] VITALS (15 sets, daily range): BP systolic 108–142; BP diastolic 44–61
[2017-01-22 05:02] LABS: HEMATOCRIT 23.6 % (36.0-47.0); HEMOGLOBIN 7.5 g/dL (12.0-15.5); RED BLOOD COUNT 2.67 x10^6/uL (3.50-5.40); RED CELL DISTRIBUTION WIDTH 14.4 % (11.5-14.5); WHITE BLOOD COUNT 6.5 x10^3/uL (4.0-11.0)
[2017-01-22] MEDS: IPRATRPIUM/ALBUTEROL 0.5/2.5MG 3 ML NEBU. NEB SCH ×4 (06:51→20:50)
[2017-01-22] MEDS ORDERED: IOHEXOL 300 MG/ML 100ML VIAL. ONE (08:47)
[2017-01-22] MEDS ORDERED: LIDOCAINE 1% / SOD BICARB 8.4% 20 ML VIAL. IJ ONE ×2 (08:48→09:00)
[2017-01-22] MEDS ORDERED: MIDAZOLAM HCL/PF 2 MG/2 ML VIAL. ONE (08:59)
[2017-01-22] MEDS ORDERED: NALOXONE 0.4 MG/ML VIAL. ONE (08:59)
[2017-01-22] MEDS ORDERED: fentaNYL PF VIAL 100 MCG/2 ML VIAL ONE (08:59)
[2017-01-22] MEDS ORDERED: fentaNYL PF VIAL 100 MCG/2 ML VIAL IV ONE (09:00)
[2017-01-22] MEDS ORDERED: IOHEXOL 300 MG/ML 100ML VIAL. IART ONE (09:00)
[2017-01-22] MEDS ORDERED: FLUMAZENIL 0.5 MG/5 ML VIAL. IV ONE (09:00)
[2017-01-22] MEDS ORDERED: MIDAZOLAM HCL/PF 2 MG/2 ML VIAL. IV ONE (09:00)
[2017-01-22] MEDS ORDERED: CONTRAST GIVEN MC PRN (09:15)
--- NOTE | 2017-01-22 09:53 | RAD ---
Title: Inferior vena cava filter placement 01/22/2017 Indication: History of pulmonary emboli and GI bleed. Patient has recurrent deep venous thrombosis and is considered a poor candidate for anticoagulation. Anesthesia: Continuous cardiopulmonary monitoring was performed throughout the procedure by trained independent observer. Local anesthesia was obtained with 1% lidocaine. Sterile technique: The procedure was performed utilizing all elements of maximal sterile barrier technique which included: Cap, mask, sterile gown, large sterile drape, and antiseptic hand hygiene, site preparation for cutaneous antisepsis with 2% chlorhexidine or current approved guideline alternative. DAP: 58Gycm^2 Technique/findings: After obtaining informed consent the patient was placed on table in a supine position. The right common femoral vein was percutaneous access utilizing a micropuncture technique with a 21-gauge needle. A 4 Slovenian transitional sheath was placed over an 018 wire. A preliminary inferior venacavogram was performed demonstrating the IVC to be normal in size and appropriate for a Bard Tess type IVC filter. Bilateral renal vein inflow was demonstrated at the L1-2 level. The transitional sheath was exchanged over an 035 J-wire for the 9 Slovenian introducer sheath. A complete inferior venacavogram was then performed demonstrating wide patency of the IVC without evidence of thrombus. A lateral renal vein inflow is again seen at the L1-2 level. The introducer sheath was advanced into the upper inferior vena cava and the Bardon Traill type IVC filter deployed immediately below the renal vein inflow. Completion venography was performed demonstrating good axial orientation of the filter and good filter-wall contact. The filter is positioned at the L2 level immediately below the renal vein inflow. The sheath was then removed and good hemostasis was obtained. The patient tolerated the procedure well and after appropriate monitoring was sent to the floor in stable condition. Impression: 1. Unremarkable inferior venacavogram demonstrating bilateral renal vein inflow the L1-2 level. 2. Deployment of Bard Tess type IVC filter at the L2 level immediately below the renal vein inflow. This filter is a permanent filter but has an option that can be removed at a later date if requested. This filter is MRI compatible.
--- NOTE | 2017-01-22 10:01 | PDOC ---
Exam Adjunct Sociology Professor Adjunct Sociology Professor Christian Pre-Procedure Diagnosis Pre-Procedure Diagnosis DVT with GI bleed Post-Procedure Diagnosis Post-Procedure Diagnosis s/p IVC filter placement Procedure Performed Procedure Performed IVC Filter Placement Type of Anesthesia Type of Anesthesia local Estimated Blood Loss EBL: trace Specimens Specimans none Drain/Tubes Drains/Tubes none Condition of Patient Condition of Patient stable Disposition Disposition left department in stable condition IDANIA LORENZ Jr, MD Jan 22, 2017 10:01
[2017-01-22] MEDS: CITALOPRAM 20 MG TABLET. PO SCH (10:07)
[2017-01-22] MEDS: GABAPENTIN 100 MG CAPSULE. PO SCH ×3 (10:07→21:15)
[2017-01-22] MEDS: amLODIPine BESYLATE 5 MG TABLET PO SCH (10:11)
--- NOTE | 2017-01-22 10:28 | PDOC ---
PULMONARY PROGRESS NOTES Subjective has is on 02, sob is better, no cough, cp Vitals Vital Signs Date Time Temp Pulse Resp B/P (MAP) Pulse Ox O2 Delivery O2 Flow Rate FiO2 01/22/17 10:11 76 116/56 01/22/17 09:20 25 87 Nasal Cannula 4.0 01/22/17 07:00 97.5 97.5 ROS: No Abdominal Pain, No Increase Cough General: Alert HEENT: Other (nc at perrl, nose throat clear) Lungs: Crackles Cardiovascular: S1, S2 Abdomen: Soft, Non-tender Neuro Exam: Alert Extremities: Other (edema) Skin: Warm Labs Laboratory Tests Test 01/20/17 12:40 01/21/17 04:23 01/21/17 18:30 01/22/17 04:06 White Blood Count 7.1 x10^3/uL (4.0-11.0) 5.5 x10^3/uL (4.0-11.0) 6.7 x10^3/uL (4.0-11.0) 6.5 x10^3/uL (4.0-11.0) Red Blood Count 3.35 x10^6/uL (3.50-5.40) 2.91 x10^6/uL (3.50-5.40) 2.92 x10^6/uL (3.50-5.40) 2.67 x10^6/uL (3.50-5.40) Hemoglobin 9.6 g/dL (12.0-15.5) 8.2 g/dL (12.0-15.5) 8.3 g/dL (12.0-15.5) 7.5 g/dL (12.0-15.5) Hematocrit 29.3 % (36.0-47.0) 25.2 % (36.0-47.0) 26.0 % (36.0-47.0) 23.6 % (36.0-47.0) Mean Corpuscular Volume 87 fL (79-100) 87 fL (79-100) 89 fL (79-100) 88 fL ( 79-100) Mean Corpuscular Hemoglobin 29 pg (25-35) 28 pg (25-35) 28 pg (25-35) 28 pg ( 25-35) Mean Corpuscular Hemoglobin Concent 33 g/dL (31-37) 32 g/dL (31-37) 32 g/dL (31-37) 32 g/dL (31-37) Red Cell Distribution Width 14.6 % (11.5-14.5) 14.9 % (11.5-14.5) 14.7 % (11.5-14.5) 14.4 % (11.5-14.5) Platelet Count 237 x10^3/uL (140-400) 228 x10^3/uL (140-400) 221 x10^3/uL (140-400) 208 x10^3/uL (140-400) Neutrophils (%) (Auto) 75 % (31-73) 71 % (31-73) Lymphocytes (%) (Auto) 15 % (24-48) 16 % (24-48) Monocytes (%) (Auto) 7 % (0-9) 8 % (0-9) Eosinophils (%) (Auto) 3 % (0-3) 4 % (0-3) Basophils (%) (Auto) 1 % (0-3) 1 % (0-3) Neutrophils # (Auto) 5.3 x10^3uL (1.8-7.7) 3.9 x10^3uL (1.8-7.7) Lymphocytes # (Auto) 1.0 x10^3/uL (1.0-4.8) 0.9 x10^3/uL (1.0-4.8) Monocytes # (Auto) 0.5 x10^3/uL (0.0-1.1) 0.5 x10^3/uL (0.0-1.1) Eosinophils # (Auto) 0.2 x10^3/uL (0.0-0.7) 0.2 x10^3/uL (0.0-0.7) Basophils # (Auto) 0.1 x10^3/uL (0.0-0.2) 0.1 x10^3/uL (0.0-0.2) Prothrombin Time 14.6 SEC (11.7-14.0) Prothromb Time International Ratio 1.2 (0.8-1.1) Stool Occult Blood Positive (NEG) Sodium Level 139 mmol/L (136-145) 143 mmol/L (136-145) Potassium Level 4.7 mmol/L (3.5-5.1) 4.7 mmol/L (3.5-5.1) Chloride Level 105 mmol/L (98-107) 111 mmol/L (98-107) Carbon Dioxide Level 25 mmol/L (21-32) 27 mmol/L (21-32) Anion Gap 9 (6-14) 5 (6-14) Blood Urea Nitrogen 36 mg/dL (7-20) 28 mg/dL (7-20) Creatinine 1.4 mg/dL (0.6-1.0) 1.0 mg/dL (0.6-1.0) Estimated GFR (Cockcroft-Gault) 35.6 52.4 BUN/Creatinine Ratio 26 (6-20) Glucose Level 117 mg/dL (70-99) 83 mg/dL (70-99) Calcium Level 8.8 mg/dL (8.5-10.1) 8.4 mg/dL (8.5-10.1) Total Bilirubin 0.4 mg/dL (0.2-1.0) Aspartate Amino Transf (AST/SGOT) 18 U/L (15-37) Alanine Aminotransferase (ALT/SGPT) 20 U/L (14-59) Alkaline Phosphatase 100 U/L (46-116) Total Protein 6.2 g/dL (6.4-8.2) Albumin 3.3 g/dL (3.4-5.0) Albumin/Globulin Ratio 1.1 (1.0-1.7) Laboratory Tests Test 01/21/17 18:30 01/22/17 04:06 White Blood Count 6.7 x10^3/uL (4.0-11.0) 6.5 x10^3/uL (4.0-11.0) Red Blood Count 2.92 x10^6/uL (3.50-5.40) 2.67 x10^6/uL (3.50-5.40) Hemoglobin 8.3 g/dL (12.0-15.5) 7.5 g/dL (12.0-15.5) Hematocrit 26.0 % (36.0-47.0) 23.6 % (36.0-47.0) Mean Corpuscular Volume 89 fL (79-100) 88 fL (79-100) Mean Corpuscular Hemoglobin 28 pg (25-35) 28 pg (25-35) Mean Corpuscular Hemoglobin Concent 32 g/dL (31-37) 32 g/dL (31-37) Red Cell Distribution Width 14.7 % (11.5-14.5) 14.4 % (11.5-14.5) Platelet Count 221 x10^3/uL (140-400) 208 x10^3/uL (140-400) Medications Active Scripts Medications Dose Route/Sig Max Daily Dose Days Date Category Dulcolax (Bisacodyl) 5 Mg Tablet.dr 5 Mg PO BID PRN 01/20/17 Reported Cyanocobalamin Injection (Cyanocobalamin (Vitamin B-12)) 1,000 Mcg/1 Ml Vial 1 Ml IM QMONTH 01/20/17 Reported Gabapentin 100 Mg Capsule 100 Mg PO TID 10/08/16 Reported Naproxen 375 Mg Tablet 1 Tab PO BID 10/08/16 Reported Citalopram Hbr (Citalopram Hydrobromide) 20 Mg Tablet 1 Tab PO DAILY 10/08/16 Reported Amlodipine Besylate 5 Mg Tablet 5 Mg PO DAILY 10/08/16 Reported Impression . IMPRESSION: 1. Chronic dyspnea with exertion associated with fatigue and hypoxia. multifactorial, anemia. vte. 2. Ongoing gastrointestinal bleed. Gastroenterology has been consulted and further recommendations to follow per Gastroenterology. 3. No significant history of tobacco use. 4. Chronic hypoxic respiratory failure, on home oxygen 2-3 liters. With recent increase in oxygen requirements, per the patient's doctors history. 5. Abnormal CT chest without contrast with large hiatal hernia and mild atelectasis at the right base. No significant interstitial lung disease. Plan . RECOMMENDATIONS: 1. Continue with present oxygen to keep saturation 92% to 94%. 2. has dvt ivc filter placed today, i doubt she will be a candidate for anti coagulant,...age, risk of fall, gib, will ask gi 3. Follow Gastroenterology recommendations. 4. vq scan today 5. Once her hemoglobin is stable and if she continues to have fatigue and weakness, then a sleep study can be considered as an outpatient. Discussed with the rn, pt and patient's daughter MARINO SALGADO MD Jan 22, 2017 10:28
[2017-01-22] MEDS ORDERED: IV DEXTROSE 5 %-0.45 % NACL 1,000 ML IV ONE (11:15)
--- NOTE | 2017-01-22 11:44 | PDOC ---
G I PROGRESS NOTE Subjective Thinks bleeding slacked off a lot. No complaints. Objective DVT/IVC filter noted. Physical Exam Lungs clear. RRR Abdomen soft, not tender nor distended. Review of Relevant I have reviewed the following items jazmín (where applicable) has been applied. Labs Laboratory Tests Test 01/20/17 12:40 01/21/17 04:23 01/21/17 18:30 01/22/17 04:06 White Blood Count 7.1 x10^3/uL (4.0-11.0) 5.5 x10^3/uL (4.0-11.0) 6.7 x10^3/uL (4.0-11.0) 6.5 x10^3/uL (4.0-11.0) Red Blood Count 3.35 x10^6/uL (3.50-5.40) 2.91 x10^6/uL (3.50-5.40) 2.92 x10^6/uL (3.50-5.40) 2.67 x10^6/uL (3.50-5.40) Hemoglobin 9.6 g/dL (12.0-15.5) 8.2 g/dL (12.0-15.5) 8.3 g/dL (12.0-15.5) 7.5 g/dL (12.0-15.5) Hematocrit 29.3 % (36.0-47.0) 25.2 % (36.0-47.0) 26.0 % (36.0-47.0) 23.6 % (36.0-47.0) Mean Corpuscular Volume 87 fL (79-100) 87 fL (79-100) 89 fL (79-100) 88 fL ( 79-100) Mean Corpuscular Hemoglobin 29 pg (25-35) 28 pg (25-35) 28 pg (25-35) 28 pg ( 25-35) Mean Corpuscular Hemoglobin Concent 33 g/dL (31-37) 32 g/dL (31-37) 32 g/dL (31-37) 32 g/dL (31-37) Red Cell Distribution Width 14.6 % (11.5-14.5) 14.9 % (11.5-14.5) 14.7 % (11.5-14.5) 14.4 % (11.5-14.5) Platelet Count 237 x10^3/uL (140-400) 228 x10^3/uL (140-400) 221 x10^3/uL (140-400) 208 x10^3/uL (140-400) Neutrophils (%) (Auto) 75 % (31-73) 71 % (31-73) Lymphocytes (%) (Auto) 15 % (24-48) 16 % (24-48) Monocytes (%) (Auto) 7 % (0-9) 8 % (0-9) Eosinophils (%) (Auto) 3 % (0-3) 4 % (0-3) Basophils (%) (Auto) 1 % (0-3) 1 % (0-3) Neutrophils # (Auto) 5.3 x10^3uL (1.8-7.7) 3.9 x10^3uL (1.8-7.7) Lymphocytes # (Auto) 1.0 x10^3/uL (1.0-4.8) 0.9 x10^3/uL (1.0-4.8) Monocytes # (Auto) 0.5 x10^3/uL (0.0-1.1) 0.5 x10^3/uL (0.0-1.1) Eosinophils # (Auto) 0.2 x10^3/uL (0.0-0.7) 0.2 x10^3/uL (0.0-0.7) Basophils # (Auto) 0.1 x10^3/uL (0.0-0.2) 0.1 x10^3/uL (0.0-0.2) Prothrombin Time 14.6 SEC (11.7-14.0) Prothromb Time International Ratio 1.2 (0.8-1.1) Stool Occult Blood Positive (NEG) Sodium Level 139 mmol/L (136-145) 143 mmol/L (136-145) Potassium Level 4.7 mmol/L (3.5-5.1) 4.7 mmol/L (3.5-5.1) Chloride Level 105 mmol/L (98-107) 111 mmol/L (98-107) Carbon Dioxide Level 25 mmol/L (21-32) 27 mmol/L (21-32) Anion Gap 9 (6-14) 5 (6-14) Blood Urea Nitrogen 36 mg/dL (7-20) 28 mg/dL (7-20) Creatinine 1.4 mg/dL (0.6-1.0) 1.0 mg/dL (0.6-1.0) Estimated GFR (Cockcroft-Gault) 35.6 52.4 BUN/Creatinine Ratio 26 (6-20) Glucose Level 117 mg/dL (70-99) 83 mg/dL (70-99) Calcium Level 8.8 mg/dL (8.5-10.1) 8.4 mg/dL (8.5-10.1) Total Bilirubin 0.4 mg/dL (0.2-1.0) Aspartate Amino Transf (AST/SGOT) 18 U/L (15-37) Alanine Aminotransferase (ALT/SGPT) 20 U/L (14-59) Alkaline Phosphatase 100 U/L (46-116) Total Protein 6.2 g/dL (6.4-8.2) Albumin 3.3 g/dL (3.4-5.0) Albumin/Globulin Ratio 1.1 (1.0-1.7) Laboratory Tests Test 01/21/17 18:30 01/22/17 04:06 White Blood Count 6.7 x10^3/uL (4.0-11.0) 6.5 x10^3/uL (4.0-11.0) Red Blood Count 2.92 x10^6/uL (3.50-5.40) 2.67 x10^6/uL (3.50-5.40) Hemoglobin 8.3 g/dL (12.0-15.5) 7.5 g/dL (12.0-15.5) Hematocrit 26.0 % (36.0-47.0) 23.6 % (36.0-47.0) Mean Corpuscular Volume 89 fL (79-100) 88 fL (79-100) Mean Corpuscular Hemoglobin 28 pg (25-35) 28 pg (25-35) Mean Corpuscular Hemoglobin Concent 32 g/dL (31-37) 32 g/dL (31-37) Red Cell Distribution Width 14.7 % (11.5-14.5) 14.4 % (11.5-14.5) Platelet Count 221 x10^3/uL (140-400) 208 x10^3/uL (140-400) Drop in hemoglobin; to get blood. Medications Current Medications Sodium Chloride 1,000 ml @ 1,000 mls/hr 1X ONCE IV Last administered on 14:36; Start 01/20/17 at 14:30; Stop 01/20/17 at 15:29; Status DC Amlodipine Besylate (Norvasc) 5 mg DAILY PO Last administered on 01/22/17 10: 11; Start 01/21/17 at 09:00 Citalopram Hydrobromide (CeleXA) 20 mg DAILY PO Last administered on 01/22/17 10:07; Start 01/21/17 at 09:00 Gabapentin (Neurontin) 100 mg TID PO Last administered on 01/22/17 10:07; Start 01/21/17 at 09:00 Albuterol/ Ipratropium (Duoneb) 3 ml RTQID NEB Last administered on 01/22/17 06:51; Start 01/21/17 at 12:00 Iohexol (Omnipaque 300 Mg/ml) 100 ml STK-MED ONCE .ROUTE ; Start 01/22/17 at 08: 47; Stop 01/22/17 at 08:48; Status DC Lidocaine/Sodium Bicarbonate (Buffered Lidocaine 1%) 20 ml STK-MED ONCE IJ ; Start 01/22/17 at 08:48; Stop 01/22/17 at 08:49; Status DC Heparin Sodium/ Sodium Chloride 500 ml @ As Directed STK-MED ONCE .ROUTE ; Start 01/22/17 at 08:48; Stop 01/22/17 at 08:49; Status DC Fentanyl Citrate (Fentanyl 2ml Vial) 100 mcg STK-MED ONCE .ROUTE ; Start at 08:59; Stop 01/22/17 at 09:00; Status DC Midazolam HCl (Versed) 2 mg STK-MED ONCE .ROUTE ; Start 01/22/17 at 08:59; Stop 01/22/17 at 09:00; Status DC Naloxone HCl (Narcan) 0.4 mg STK-MED ONCE .ROUTE ; Start 01/22/17 at 08:59; Stop 01/22/17 at 09:00; Status DC Flumazenil (Romazicon) 0.5 mg STK-MED ONCE IV ; Start 01/22/17 at 09:00; Stop at 09:01; Status DC Heparin Sodium/ Sodium Chloride 1,000 unit 1X ONCE IART Last administered on 09:00; Start 01/22/17 at 09:00; Stop 01/22/17 at 09:08; Status DC Lidocaine/Sodium Bicarbonate (Buffered Lidocaine 1%) 20 ml 1X ONCE IJ Last administered on 01/22/17 09:00; Start 01/22/17 at 09:00; Stop 01/22/17 at 09:08 ; Status DC Midazolam HCl (Versed) 2 mg 1X ONCE IV ; Start 01/22/17 at 09:00; Stop at 09:08; Status DC Fentanyl Citrate (Fentanyl 2ml Vial) 100 mcg 1X ONCE IV ; Start 01/22/17 at 09: 00; Stop 01/22/17 at 09:08; Status DC Iohexol (Omnipaque 300 Mg/ml) 100 ml 1X ONCE IART Last administered on 09:00; Start 01/22/17 at 09:00; Stop 01/22/17 at 09:08; Status DC Info (Do NOT chart on this entry -- for MONITORING) 1 each PRN DAILY PRN MC SEE COMMENTS; Start 01/22/17 at 09:15; Stop 01/24/17 at 09:14 Dextrose/Sodium Chloride 1,000 ml @ 75 mls/hr 1X ONCE IV ; Start 01/22/17 at 11:15; Stop 01/23/17 at 00:34 Active Scripts Active Reported Dulcolax (Bisacodyl) 5 Mg Tablet.dr 5 Mg PO BID PRN Cyanocobalamin Injection (Cyanocobalamin (Vitamin B-12)) 1,000 Mcg/1 Ml Vial 1 Ml IM QMONTH Gabapentin 100 Mg Capsule 100 Mg PO TID Naproxen 375 Mg Tablet 1 Tab PO BID Citalopram Hbr (Citalopram Hydrobromide) 20 Mg Tablet 1 Tab PO DAILY Amlodipine Besylate 5 Mg Tablet 5 Mg PO DAILY Vitals/I & O Vital Sign - Last 24 Hours 01/21/17 01/21/17 01/21/17 01/21/17 15:00 16:45 19:15 19:55 Temp 97.7 97.5 97.7 97.5 Pulse 76 98 59 Resp 20 22 B/P (MAP) 82/43 (56) 94/58 (70) 145/57 (86) Pulse Ox 94 94 O2 Delivery Room Air Nasal Cannula Nasal Cannula O2 Flow Rate 2.0 2.0 01/21/17 01/21/17 01/21/17 01/22/17 21:03 23:23 23:24 03:40 Temp 97.4 97.9 97.4 97.9 Pulse 69 64 Resp 24 22 B/P (MAP) 139/53 (81) 127/55 (79) Pulse Ox 93 89 93 91 O2 Delivery Nasal Cannula Nasal Cannula Nasal Cannula Nasal Cannula O2 Flow Rate 2.0 2.0 3.0 3.0 01/22/17 01/22/17 01/22/17 01/22/17 06:51 07:00 08:05 09:20 Temp 97.5 97.5 Pulse 64 64 Resp 20 25 B/P (MAP) 121/52 (75) 142/59 (86) Pulse Ox 92 92 87 O2 Delivery Nasal Cannula Nasal Cannula Nasal Cannula Nasal Cannula O2 Flow Rate 2.0 3.0 2.0 4.0 01/22/17 10:11 Pulse 76 B/P (MAP) 116/56 Intake and Output 01/21/17 01/21/17 01/22/17 15:00 23:00 07:00 Intake Total 400 ml Balance 400 ml Problem List Problems Medical Problems: (1) Anemia, blood loss Status: Acute Assessment Likely diverticular bleed, slowing? Stopped? DVT, s/p IVC filter. Plan of Care: Continue current Tx, Mgmt Plan of Care Note Observe for active bleeding. If brisk bleeding, CTA/consider IR consult. KHUSHI TSE MD Jan 22, 2017 11:44
--- NOTE | 2017-01-22 13:24 | PDOC ---
SUBJECTIVE Subjective just came back from IVC filter placement, feels ok slightly fatigue , stillwith bloddy stool and Hb down to 7.5 OBJECTIVE Vital Signs Vital Signs Date Time Temp Pulse Resp B/P (MAP) Pulse Ox O2 Delivery O2 Flow Rate FiO2 01/22/17 12:11 92 Nasal Cannula 2.0 01/22/17 10:11 76 116/56 01/22/17 09:20 64 25 142/59 (86) 87 Nasal Cannula 4.0 01/22/17 08:05 Nasal Cannula 2.0 01/22/17 07:00 97.5 64 20 121/52 (75) 92 Nasal Cannula 3.0 97.5 01/22/17 06:51 92 Nasal Cannula 2.0 01/22/17 03:40 97.9 64 22 127/55 (79) 91 Nasal Cannula 3.0 97.9 01/21/17 23:24 93 Nasal Cannula 3.0 01/21/17 23:23 97.4 69 24 139/53 (81) 89 Nasal Cannula 2.0 97.4 01/21/17 21:03 93 Nasal Cannula 2.0 01/21/17 19:55 Nasal Cannula 2.0 01/21/17 19:15 97.5 59 22 145/57 (86) 94 Nasal Cannula 2.0 97.5 01/21/17 16:45 98 94/58 (70) 01/21/17 15:00 97.7 76 20 82/43 (56) 94 Room Air 97.7 I & O Intake and Output 01/22/17 07:00 Intake Total 400 ml Balance 400 ml Intake Oral 400 ml # Voids 5 # Bowel Movements 3 PHYSICAL EXAM Physical Exam lungs clear heart RRR abd soft ext no edema ASSESSMENT/PLAN Assessment/Plan 1. Ongoing hematochezia with progressive anemia. likely Diverticular bleed , Hb down today transfuse 1 unit 2. acute resp failure likely due to COPD for VQ sacn this PM to R/O PE 3- DVT S/P IVC filter placement 4. History of pernicious anemia treated. 5. Hypertension. discussed with daughter interested in home health at discharge Problems: COMMENT Lab Laboratory Tests Test 01/21/17 18:30 01/22/17 04:06 White Blood Count 6.7 x10^3/uL (4.0-11.0) 6.5 x10^3/uL (4.0-11.0) Red Blood Count 2.92 x10^6/uL (3.50-5.40) 2.67 x10^6/uL (3.50-5.40) Hemoglobin 8.3 g/dL (12.0-15.5) 7.5 g/dL (12.0-15.5) Hematocrit 26.0 % (36.0-47.0) 23.6 % (36.0-47.0) Mean Corpuscular Volume 89 fL (79-100) 88 fL (79-100) Mean Corpuscular Hemoglobin 28 pg (25-35) 28 pg (25-35) Mean Corpuscular Hemoglobin Concent 32 g/dL (31-37) 32 g/dL (31-37) Red Cell Distribution Width 14.7 % (11.5-14.5) 14.4 % (11.5-14.5) Platelet Count 221 x10^3/uL (140-400) 208 x10^3/uL (140-400) ENEDELIA WANG MD Jan 22, 2017 13:23
--- NOTE | 2017-01-22 14:51 | RAD ---
EXAM: Ventilation/perfusion scintigraphy. HISTORY: Dyspnea, shortness of breath, deep venous thrombosis, prior pulmonary embolism. COMPARISON: 01/21/2017. FINDINGS: 15.0 mCi xenon-133 was inhaled and ventilation images are were obtained. 5.0 mCi technetium 99m MAA was administered intravenously and perfusion images obtained in multiple projections. Ventilation images demonstrate mild radiotracer retention consistent with chronic obstructive pulmonary disease. Perfusion images demonstrate large unmatched defects in the right lower lobe, the lingula the anterior segment of the right upper lobe. IMPRESSION: 1. High probability for pulmonary embolism. 2. Radiotracer retention on ventilation suggests chronic obstructive pulmonary disease. These findings were communicated to Mireya after multiple attempts to reach the nurse caring for the patient on 01/22/2017 at 1430.
[2017-01-22] MEDS: PANTOPRAZOLE 40 MG TABLET.DR. PO SCH (16:30)
[2017-01-23 03:00] VITALS: BP 115/62
[2017-01-23] MEDS ORDERED: ACETAMINOPHEN 650 MG/20.3 ML SOLUTION. PEG PRN (03:00)
[2017-01-23] MEDS ORDERED: ACETAMINOPHEN 650 MG/20.3 ML SOLUTION. PO PRN (03:45)
[2017-01-23] MEDS ORDERED: ACETAMINOPHEN 325 MG TABLET. PO PRN (03:45)
[2017-01-23 05:18] LABS: HEMATOCRIT 25.4 % (36.0-47.0); HEMOGLOBIN 8.3 g/dL (12.0-15.5); RED BLOOD COUNT 2.98 x10^6/uL (3.50-5.40); RED CELL DISTRIBUTION WIDTH 15.7 % (11.5-14.5); WHITE BLOOD COUNT 6.5 x10^3/uL (4.0-11.0)
[2017-01-23 05:33] LABS: CREATININE 0.9 mg/dL (0.6-1.0); GFR 59.2; POTASSIUM 3.8 mmol/L (3.5-5.1)
[2017-01-23 07:00] VITALS: BP 123/59
[2017-01-23] MEDS: IPRATRPIUM/ALBUTEROL 0.5/2.5MG 3 ML NEBU. NEB SCH ×4 (07:18→20:17)
--- NOTE | 2017-01-23 09:22 | PDOC ---
G I PROGRESS NOTE Subjective Non-specific abdominal discomfort/"gas". Some better pc. No N or V. Objective Per staff, only brown stool with small amount blood overnight. Physical Exam Lungs clear. RRR Abdomen soft w/mild tenderness. Review of Relevant I have reviewed the following items jazmín (where applicable) has been applied. Labs Laboratory Tests Test 01/21/17 18:30 01/22/17 04:06 01/23/17 03:50 White Blood Count 6.7 x10^3/uL (4.0-11.0) 6.5 x10^3/uL (4.0-11.0) 6.5 x10^3/uL (4.0-11.0) Red Blood Count 2.92 x10^6/uL (3.50-5.40) 2.67 x10^6/uL (3.50-5.40) 2.98 x10^6/uL (3.50-5.40) Hemoglobin 8.3 g/dL (12.0-15.5) 7.5 g/dL (12.0-15.5) 8.3 g/dL (12.0-15.5) Hematocrit 26.0 % (36.0-47.0) 23.6 % (36.0-47.0) 25.4 % (36.0-47.0) Mean Corpuscular Volume 89 fL (79-100) 88 fL (79-100) 85 fL (79-100) Mean Corpuscular Hemoglobin 28 pg (25-35) 28 pg (25-35) 28 pg (25-35) Mean Corpuscular Hemoglobin Concent 32 g/dL (31-37) 32 g/dL (31-37) 33 g/dL (31-37) Red Cell Distribution Width 14.7 % (11.5-14.5) 14.4 % (11.5-14.5) 15.7 % (11.5-14.5) Platelet Count 221 x10^3/uL (140-400) 208 x10^3/uL (140-400) 205 x10^3/uL (140-400) Sodium Level 143 mmol/L (136-145) Potassium Level 3.8 mmol/L (3.5-5.1) Chloride Level 109 mmol/L (98-107) Carbon Dioxide Level 28 mmol/L (21-32) Anion Gap 6 (6-14) Blood Urea Nitrogen 13 mg/dL (7-20) Creatinine 0.9 mg/dL (0.6-1.0) Estimated GFR (Cockcroft-Gault) 59.2 Glucose Level 104 mg/dL (70-99) Calcium Level 8.0 mg/dL (8.5-10.1) Laboratory Tests Test 01/23/17 03:50 White Blood Count 6.5 x10^3/uL (4.0-11.0) Red Blood Count 2.98 x10^6/uL (3.50-5.40) Hemoglobin 8.3 g/dL (12.0-15.5) Hematocrit 25.4 % (36.0-47.0) Mean Corpuscular Volume 85 fL (79-100) Mean Corpuscular Hemoglobin 28 pg (25-35) Mean Corpuscular Hemoglobin Concent 33 g/dL (31-37) Red Cell Distribution Width 15.7 % (11.5-14.5) Platelet Count 205 x10^3/uL (140-400) Sodium Level 143 mmol/L (136-145) Potassium Level 3.8 mmol/L (3.5-5.1) Chloride Level 109 mmol/L (98-107) Carbon Dioxide Level 28 mmol/L (21-32) Anion Gap 6 (6-14) Blood Urea Nitrogen 13 mg/dL (7-20) Creatinine 0.9 mg/dL (0.6-1.0) Estimated GFR (Cockcroft-Gault) 59.2 Glucose Level 104 mg/dL (70-99) Calcium Level 8.0 mg/dL (8.5-10.1) Hemoglobin up some after transfusion yesterday. Medications Current Medications Sodium Chloride 1,000 ml @ 1,000 mls/hr 1X ONCE IV Last administered on 14:36; Start 01/20/17 at 14:30; Stop 01/20/17 at 15:29; Status DC Amlodipine Besylate (Norvasc) 5 mg DAILY PO Last administered on 01/22/17 10: 11; Start 01/21/17 at 09:00 Citalopram Hydrobromide (CeleXA) 20 mg DAILY PO Last administered on 01/22/17 10:07; Start 01/21/17 at 09:00 Gabapentin (Neurontin) 100 mg TID PO Last administered on 01/22/17 21:15; Start 01/21/17 at 09:00 Albuterol/ Ipratropium (Duoneb) 3 ml RTQID NEB Last administered on 01/23/17 07:18; Start 01/21/17 at 12:00 Iohexol (Omnipaque 300 Mg/ml) 100 ml STK-MED ONCE .ROUTE ; Start 01/22/17 at 08: 47; Stop 01/22/17 at 08:48; Status DC Lidocaine/Sodium Bicarbonate (Buffered Lidocaine 1%) 20 ml STK-MED ONCE IJ ; Start 01/22/17 at 08:48; Stop 01/22/17 at 08:49; Status DC Heparin Sodium/ Sodium Chloride 500 ml @ As Directed STK-MED ONCE .ROUTE ; Start 01/22/17 at 08:48; Stop 01/22/17 at 08:49; Status DC Fentanyl Citrate (Fentanyl 2ml Vial) 100 mcg STK-MED ONCE .ROUTE ; Start at 08:59; Stop 01/22/17 at 09:00; Status DC Midazolam HCl (Versed) 2 mg STK-MED ONCE .ROUTE ; Start 01/22/17 at 08:59; Stop 01/22/17 at 09:00; Status DC Naloxone HCl (Narcan) 0.4 mg STK-MED ONCE .ROUTE ; Start 01/22/17 at 08:59; Stop 01/22/17 at 09:00; Status DC Flumazenil (Romazicon) 0.5 mg STK-MED ONCE IV ; Start 01/22/17 at 09:00; Stop at 09:01; Status DC Heparin Sodium/ Sodium Chloride 1,000 unit 1X ONCE IART Last administered on 09:00; Start 01/22/17 at 09:00; Stop 01/22/17 at 09:08; Status DC Lidocaine/Sodium Bicarbonate (Buffered Lidocaine 1%) 20 ml 1X ONCE IJ Last administered on 01/22/17 09:00; Start 01/22/17 at 09:00; Stop 01/22/17 at 09:08 ; Status DC Midazolam HCl (Versed) 2 mg 1X ONCE IV ; Start 01/22/17 at 09:00; Stop at 09:08; Status DC Fentanyl Citrate (Fentanyl 2ml Vial) 100 mcg 1X ONCE IV ; Start 01/22/17 at 09: 00; Stop 01/22/17 at 09:08; Status DC Iohexol (Omnipaque 300 Mg/ml) 100 ml 1X ONCE IART Last administered on 09:00; Start 01/22/17 at 09:00; Stop 01/22/17 at 09:08; Status DC Info (Do NOT chart on this entry -- for MONITORING) 1 each PRN DAILY PRN MC SEE COMMENTS; Start 01/22/17 at 09:15; Stop 01/24/17 at 09:14 Dextrose/Sodium Chloride 1,000 ml @ 75 mls/hr 1X ONCE IV Last administered on 01/22/17 12:36; Start 01/22/17 at 11:15; Stop 01/23/17 at 00:34; Status DC Acetaminophen (Tylenol) 650 mg PRN QID PRN PEG MILD PAIN / TEMP; Start at 03:00; Status Cancel Acetaminophen (Tylenol) 650 mg PRN QID PRN PO MILD PAIN / TEMP; Start 01/23/17 at 03:45 Acetaminophen (Tylenol) 650 mg PRN QID PRN PO MILD PAIN / TEMP Last administered on 01/23/17 04:00; Start 01/23/17 at 03:45 Active Scripts Active Reported Dulcolax (Bisacodyl) 5 Mg Tablet.dr 5 Mg PO BID PRN Cyanocobalamin Injection (Cyanocobalamin (Vitamin B-12)) 1,000 Mcg/1 Ml Vial 1 Ml IM QMONTH Gabapentin 100 Mg Capsule 100 Mg PO TID Naproxen 375 Mg Tablet 1 Tab PO BID Citalopram Hbr (Citalopram Hydrobromide) 20 Mg Tablet 1 Tab PO DAILY Amlodipine Besylate 5 Mg Tablet 5 Mg PO DAILY Vitals/I & O Vital Sign - Last 24 Hours 01/22/17 01/22/17 01/22/17 01/22/17 09:20 09:58 10:11 10:11 Temp 97.5 97.5 97.5 97.5 Pulse 64 63 76 68 Resp 25 20 20 B/P (MAP) 142/59 (86) 116/55 (75) 116/56 121/54 (76) Pulse Ox 87 91 93 O2 Delivery Nasal Cannula Nasal Cannula Nasal Cannula O2 Flow Rate 4.0 3.0 3.0 01/22/17 01/22/17 01/22/17 01/22/17 10:26 10:41 11:26 11:56 Temp 97.5 97.5 97.5 97.5 97.5 97.5 97.5 97.5 Pulse 73 63 64 59 Resp 20 20 20 20 B/P (MAP) 120/52 (74) 108/44 (65) 126/54 (78) 118/61 (80) Pulse Ox 95 96 92 93 O2 Delivery Nasal Cannula Nasal Cannula Nasal Cannula Nasal Cannula O2 Flow Rate 3.0 3.0 3.0 3.0 01/22/17 01/22/17 01/22/17 01/22/17 12:11 15:00 15:21 15:48 Temp 97.9 98.6 97.9 98.6 Pulse 63 66 Resp 20 16 B/P (MAP) 125/58 (80) 120/47 Pulse Ox 92 96 92 O2 Delivery Nasal Cannula Nasal Cannula Nasal Cannula O2 Flow Rate 2.0 3.0 3.0 01/22/17 01/22/17 01/22/17 01/22/17 15:57 16:52 19:00 19:35 Temp 98.1 99.9 98.1 98.1 99.9 98.1 Pulse 69 79 75 Resp 18 B/P (MAP) 110/51 128/53 126/52 (76) Pulse Ox 96 O2 Delivery Nasal Cannula Nasal Cannula O2 Flow Rate 4.0 4.0 01/22/17 01/22/17 01/23/17 01/23/17 20:52 23:00 03:00 07:00 Temp 98.1 97.7 97.5 98.1 97.7 97.5 Pulse 67 60 66 Resp 18 18 20 B/P (MAP) 122/51 (74) 115/62 (79) 123/59 (80) Pulse Ox 92 91 90 93 O2 Delivery Nasal Cannula Nasal Cannula Nasal Cannula Nasal Cannula O2 Flow Rate 4.0 4.0 4.0 3.0 01/23/17 07:20 Pulse Ox 91 O2 Delivery Nasal Cannula O2 Flow Rate 4.0 Intake and Output 01/22/17 01/22/17 01/23/17 15:00 23:00 07:00 Intake Total 600 ml 728 ml Balance 600 ml 728 ml Problem List Problems Medical Problems: (1) Anemia, blood loss Status: Acute Assessment Likely diverticular bleed; slowed/stopped? Plan of Care: Continue current Tx, Mgmt Plan of Care Note Observe. KHUSHI TSE MD Jan 23, 2017 09:22
[2017-01-23] MEDS: GABAPENTIN 100 MG CAPSULE. PO SCH ×3 (09:38→21:27)
[2017-01-23] MEDS: CITALOPRAM 20 MG TABLET. PO SCH (09:38)
[2017-01-23] MEDS: amLODIPine BESYLATE 5 MG TABLET PO SCH (09:39)
--- NOTE | 2017-01-23 09:39 | PDOC ---
PULMONARY PROGRESS NOTES Subjective is on 02, sob is better, no cough, cp, has abd discomfort Vitals Vital Signs Date Time Temp Pulse Resp B/P (MAP) Pulse Ox O2 Delivery O2 Flow Rate FiO2 01/23/17 07:20 91 Nasal Cannula 4.0 01/23/17 07:00 97.5 66 20 123/59 (80) 97.5 ROS: No Abdominal Pain, No Increase Cough General: Alert HEENT: Other (nc at perrl, nose throat clear) Lungs: Crackles Cardiovascular: S1, S2 Abdomen: Soft, Non-tender Neuro Exam: Alert Extremities: Other (edema) Skin: Warm Labs Laboratory Tests Test 01/21/17 18:30 01/22/17 04:06 01/23/17 03:50 White Blood Count 6.7 x10^3/uL (4.0-11.0) 6.5 x10^3/uL (4.0-11.0) 6.5 x10^3/uL (4.0-11.0) Red Blood Count 2.92 x10^6/uL (3.50-5.40) 2.67 x10^6/uL (3.50-5.40) 2.98 x10^6/uL (3.50-5.40) Hemoglobin 8.3 g/dL (12.0-15.5) 7.5 g/dL (12.0-15.5) 8.3 g/dL (12.0-15.5) Hematocrit 26.0 % (36.0-47.0) 23.6 % (36.0-47.0) 25.4 % (36.0-47.0) Mean Corpuscular Volume 89 fL (79-100) 88 fL (79-100) 85 fL (79-100) Mean Corpuscular Hemoglobin 28 pg (25-35) 28 pg (25-35) 28 pg (25-35) Mean Corpuscular Hemoglobin Concent 32 g/dL (31-37) 32 g/dL (31-37) 33 g/dL (31-37) Red Cell Distribution Width 14.7 % (11.5-14.5) 14.4 % (11.5-14.5) 15.7 % (11.5-14.5) Platelet Count 221 x10^3/uL (140-400) 208 x10^3/uL (140-400) 205 x10^3/uL (140-400) Sodium Level 143 mmol/L (136-145) Potassium Level 3.8 mmol/L (3.5-5.1) Chloride Level 109 mmol/L (98-107) Carbon Dioxide Level 28 mmol/L (21-32) Anion Gap 6 (6-14) Blood Urea Nitrogen 13 mg/dL (7-20) Creatinine 0.9 mg/dL (0.6-1.0) Estimated GFR (Cockcroft-Gault) 59.2 Glucose Level 104 mg/dL (70-99) Calcium Level 8.0 mg/dL (8.5-10.1) Laboratory Tests Test 01/23/17 03:50 White Blood Count 6.5 x10^3/uL (4.0-11.0) Red Blood Count 2.98 x10^6/uL (3.50-5.40) Hemoglobin 8.3 g/dL (12.0-15.5) Hematocrit 25.4 % (36.0-47.0) Mean Corpuscular Volume 85 fL (79-100) Mean Corpuscular Hemoglobin 28 pg (25-35) Mean Corpuscular Hemoglobin Concent 33 g/dL (31-37) Red Cell Distribution Width 15.7 % (11.5-14.5) Platelet Count 205 x10^3/uL (140-400) Sodium Level 143 mmol/L (136-145) Potassium Level 3.8 mmol/L (3.5-5.1) Chloride Level 109 mmol/L (98-107) Carbon Dioxide Level 28 mmol/L (21-32) Anion Gap 6 (6-14) Blood Urea Nitrogen 13 mg/dL (7-20) Creatinine 0.9 mg/dL (0.6-1.0) Estimated GFR (Cockcroft-Gault) 59.2 Glucose Level 104 mg/dL (70-99) Calcium Level 8.0 mg/dL (8.5-10.1) Medications Active Scripts Medications Dose Route/Sig Max Daily Dose Days Date Category Dulcolax (Bisacodyl) 5 Mg Tablet.dr 5 Mg PO BID PRN 01/20/17 Reported Cyanocobalamin Injection (Cyanocobalamin (Vitamin B-12)) 1,000 Mcg/1 Ml Vial 1 Ml IM QMONTH 01/20/17 Reported Gabapentin 100 Mg Capsule 100 Mg PO TID 10/08/16 Reported Naproxen 375 Mg Tablet 1 Tab PO BID 10/08/16 Reported Citalopram Hbr (Citalopram Hydrobromide) 20 Mg Tablet 1 Tab PO DAILY 10/08/16 Reported Amlodipine Besylate 5 Mg Tablet 5 Mg PO DAILY 10/08/16 Reported Impression . IMPRESSION: 1. Chronic dyspnea with exertion associated with fatigue and hypoxia. multifactorial, anemia. vte, ? cardiac. 2. Ongoing gastrointestinal bleed. Gastroenterology has been consulted and further recommendations to follow per Gastroenterology. 3. No significant history of tobacco use. 4. Chronic hypoxic respiratory failure, on home oxygen 2-3 liters. With recent increase in oxygen requirements, per the patient's doctors history. 5. Abnormal CT chest without contrast with large hiatal hernia and mild atelectasis at the right base. No significant interstitial lung disease. Plan . RECOMMENDATIONS: 1. Continue with present oxygen to keep saturation 92% to 94%. 2. has dvt ivc filter placed 01/22, i doubt she will be a candidate for anti coagulant,...age, risk of fall, gib, will ask gi 3. Follow Gastroenterology recommendations. 4. vq scan high prob 5. Once her hemoglobin is stable and if she continues to have fatigue and weakness, then a sleep study can be considered as an outpatient. 6. echo Discussed with the rn, pt and patient's daughter in details MARINO SALGADO MD Jan 23, 2017 09:39
[2017-01-23 11:00] VITALS: BP 118/53
--- NOTE | 2017-01-23 12:47 | PDOC ---
SUBJECTIVE Subjective feels better after transfusion of 1 unit, still bloody stool OBJECTIVE Vital Signs Vital Signs Date Time Temp Pulse Resp B/P (MAP) Pulse Ox O2 Delivery O2 Flow Rate FiO2 01/23/17 11:18 Nasal Cannula 3.0 01/23/17 11:00 97.9 64 20 118/53 (74) 91 Nasal Cannula 2.0 97.9 01/23/17 09:39 66 123/59 01/23/17 08:05 Nasal Cannula 3.0 01/23/17 07:20 91 Nasal Cannula 4.0 01/23/17 07:00 97.5 66 20 123/59 (80) 93 Nasal Cannula 3.0 97.5 01/23/17 03:00 97.7 60 18 115/62 (79) 90 Nasal Cannula 4.0 97.7 01/22/17 23:00 98.1 67 18 122/51 (74) 91 Nasal Cannula 4.0 98.1 01/22/17 20:52 92 Nasal Cannula 4.0 01/22/17 19:35 Nasal Cannula 4.0 01/22/17 19:00 98.1 75 18 126/52 (76) 96 Nasal Cannula 4.0 98.1 01/22/17 16:52 99.9 79 19 128/53 99.9 01/22/17 15:57 98.1 69 16 110/51 98.1 01/22/17 15:48 98.6 66 16 120/47 98.6 01/22/17 15:21 92 Nasal Cannula 3.0 01/22/17 15:00 97.9 63 20 125/58 (80) 96 Nasal Cannula 3.0 97.9 I & O Intake and Output 01/23/17 07:00 Intake Total 1328 ml Balance 1328 ml Intake Oral 600 ml IV Total 728 ml # Voids 5 # Bowel Movements 1 PHYSICAL EXAM Physical Exam lungs fairly clear heart RRR abd soft ext no edema ASSESSMENT/PLAN Assessment/Plan 1. Ongoing hematochezia with progressive anemia. likely Diverticular bleed , Hb better today after transfuse 1 unit yesterday 2. acute resp failure due to PE high probability on VQ scan discussed with jeny high risk of bleed risk of anticoagulation out way benefit she has IVC , discussed with GI Dr. Carrera as well 3- DVT S/P IVC filter placement / PE present 4. History of pernicious anemia treated. 5. Hypertension. 6.asthma/ copd Dr Byrd will resume care tomorrow Problems: COMMENT Lab Laboratory Tests Test 01/23/17 03:50 White Blood Count 6.5 x10^3/uL (4.0-11.0) Red Blood Count 2.98 x10^6/uL (3.50-5.40) Hemoglobin 8.3 g/dL (12.0-15.5) Hematocrit 25.4 % (36.0-47.0) Mean Corpuscular Volume 85 fL (79-100) Mean Corpuscular Hemoglobin 28 pg (25-35) Mean Corpuscular Hemoglobin Concent 33 g/dL (31-37) Red Cell Distribution Width 15.7 % (11.5-14.5) Platelet Count 205 x10^3/uL (140-400) Sodium Level 143 mmol/L (136-145) Potassium Level 3.8 mmol/L (3.5-5.1) Chloride Level 109 mmol/L (98-107) Carbon Dioxide Level 28 mmol/L (21-32) Anion Gap 6 (6-14) Blood Urea Nitrogen 13 mg/dL (7-20) Creatinine 0.9 mg/dL (0.6-1.0) Estimated GFR (Cockcroft-Gault) 59.2 Glucose Level 104 mg/dL (70-99) Calcium Level 8.0 mg/dL (8.5-10.1) ENEDELIA WANG MD Jan 23, 2017 12:46
[2017-01-23 15:00] VITALS: BP 132/60
[2017-01-23] MEDS: PANTOPRAZOLE 40 MG TABLET.DR. PO SCH (16:00)
[2017-01-23 18:01] LABS: HEMATOCRIT 27.3 % (36.0-47.0); HEMOGLOBIN 8.8 g/dL (12.0-15.5); RED BLOOD COUNT 3.17 x10^6/uL (3.50-5.40); WHITE BLOOD COUNT 8.5 x10^3/uL (4.0-11.0)
[2017-01-23 19:00] VITALS: BP 126/59
[2017-01-23 23:00] VITALS: BP 119/48
[2017-01-24 03:00] VITALS: BP 188/62
[2017-01-24 04:37] LABS: HEMATOCRIT 25.7 % (36.0-47.0); HEMOGLOBIN 8.2 g/dL (12.0-15.5); RED BLOOD COUNT 2.93 x10^6/uL (3.50-5.40); RED CELL DISTRIBUTION WIDTH 15.4 % (11.5-14.5); WHITE BLOOD COUNT 6.8 x10^3/uL (4.0-11.0)
[2017-01-24 05:26] LABS: ALBUMIN 2.7 g/dL (3.4-5.0); CALCIUM 8.3 mg/dL (8.5-10.1); CREATININE 0.9 mg/dL (0.6-1.0); GFR 59.2; POTASSIUM 3.7 mmol/L (3.5-5.1); TOTAL BILIRUBIN 0.4 mg/dL (0.2-1.0); TOTAL PROTEIN 5.4 g/dL (6.4-8.2)
[2017-01-24 07:00] VITALS: BP 128/86
[2017-01-24] MEDS: IPRATRPIUM/ALBUTEROL 0.5/2.5MG 3 ML NEBU. NEB SCH ×4 (07:50→19:09)
[2017-01-24] MEDS: PANTOPRAZOLE 40 MG TABLET.DR. PO SCH (07:52)
--- NOTE | 2017-01-24 08:51 | PDOC ---
Provider Note Provider Note feels same, not much more bleeding- hb same- bad combo of dvt/pe and gi bllled so lack of oac discussed w/ family- echo pending, consider oac when bleeding clearly done at least 1-2 weeks YAYA BARRERA MD Jan 24, 2017 08:51
[2017-01-24] MEDS: CITALOPRAM 20 MG TABLET. PO SCH (09:19)
[2017-01-24] MEDS: GABAPENTIN 100 MG CAPSULE. PO SCH ×3 (09:19→21:11)
[2017-01-24] MEDS: amLODIPine BESYLATE 5 MG TABLET PO SCH (09:20)
[2017-01-24 11:00] VITALS: BP 126/73
--- NOTE | 2017-01-24 14:04 | PDOC ---
Subjective: Subjective: Per pt - normal-colored stool w/ dark red blood surrounding. Hungry. Objective: Objective: Per RN - dark blood w/ BM. Daughter has questions and would like a phone call. Vital Signs: Vital Signs Date Time Temp Pulse Resp B/P (MAP) Pulse Ox O2 Delivery O2 Flow Rate FiO2 01/24/17 12:09 Nasal Cannula 3.0 01/24/17 11:00 97.5 63 20 126/73 (90) 91 97.5 Labs: Laboratory Tests Test 01/23/17 17:50 01/24/17 03:25 White Blood Count 8.5 x10^3/uL 6.8 x10^3/uL Red Blood Count 3.17 x10^6/uL 2.93 x10^6/uL Hemoglobin 8.8 g/dL 8.2 g/dL Hematocrit 27.3 % 25.7 % Mean Corpuscular Volume 86 fL 88 fL Mean Corpuscular Hemoglobin 28 pg 28 pg Mean Corpuscular Hemoglobin Concent 32 g/dL 32 g/dL Red Cell Distribution Width 16.0 % 15.4 % Platelet Count 208 x10^3/uL 194 x10^3/uL Sodium Level 144 mmol/L Potassium Level 3.7 mmol/L Chloride Level 110 mmol/L Carbon Dioxide Level 29 mmol/L Anion Gap 5 Blood Urea Nitrogen 11 mg/dL Creatinine 0.9 mg/dL Estimated GFR (Cockcroft-Gault) 59.2 BUN/Creatinine Ratio 12 Glucose Level 91 mg/dL Calcium Level 8.3 mg/dL Total Bilirubin 0.4 mg/dL Aspartate Amino Transf (AST/SGOT) 15 U/L Alanine Aminotransferase (ALT/SGPT) 18 U/L Alkaline Phosphatase 85 U/L Total Protein 5.4 g/dL Albumin 2.7 g/dL Albumin/Globulin Ratio 1.0 PE: GEN: NAD LUNGS: CTAB HEART: RRR ABD: NABS, S/ND/NT NEURO/PSYCH: A & O 3 A/P: Hematochezia - slowing -bleeding scan neg, Hgb dropped but now stable in 8s -last colonoscopy 2002, has diverticulosis and hemorrhoids, also h/o constipation PE, DVT s/p IVC filter placement -- Bleeding seems improved. On PPI. Will discuss advancing diet w/ Dr. Orozco. ?need for OAC in the future SABRINA CONNELL 19, 2017 14:04
[2017-01-24 15:00] VITALS: BP 143/55
--- NOTE | 2017-01-24 15:10 | PDOC ---
PULMONARY PROGRESS NOTES Subjective PT NOT MORE SOA FEELS BETTER Vitals Vital Signs Date Time Temp Pulse Resp B/P (MAP) Pulse Ox O2 Delivery O2 Flow Rate FiO2 01/24/17 12:09 Nasal Cannula 3.0 01/24/17 11:00 97.5 63 20 126/73 (90) 91 97.5 ROS: No Nausea, No Chest Pain, No Abdominal Pain, No Increase Cough General: Alert HEENT: Other (nc at perrl, nose throat clear) Lungs: Clear Cardiovascular: S1, S2 Abdomen: Soft, Non-tender Neuro Exam: Alert Extremities: Other (edema) Skin: Warm Labs Laboratory Tests Test 01/23/17 03:50 01/23/17 17:50 01/24/17 03:25 White Blood Count 6.5 x10^3/uL (4.0-11.0) 8.5 x10^3/uL (4.0-11.0) 6.8 x10^3/uL (4.0-11.0) Red Blood Count 2.98 x10^6/uL (3.50-5.40) 3.17 x10^6/uL (3.50-5.40) 2.93 x10^6/uL (3.50-5.40) Hemoglobin 8.3 g/dL (12.0-15.5) 8.8 g/dL (12.0-15.5) 8.2 g/dL (12.0-15.5) Hematocrit 25.4 % (36.0-47.0) 27.3 % (36.0-47.0) 25.7 % (36.0-47.0) Mean Corpuscular Volume 85 fL (79-100) 86 fL (79-100) 88 fL (79-100) Mean Corpuscular Hemoglobin 28 pg (25-35) 28 pg (25-35) 28 pg (25-35) Mean Corpuscular Hemoglobin Concent 33 g/dL (31-37) 32 g/dL (31-37) 32 g/dL (31-37) Red Cell Distribution Width 15.7 % (11.5-14.5) 16.0 % (11.5-14.5) 15.4 % (11.5-14.5) Platelet Count 205 x10^3/uL (140-400) 208 x10^3/uL (140-400) 194 x10^3/uL (140-400) Sodium Level 143 mmol/L (136-145) 144 mmol/L (136-145) Potassium Level 3.8 mmol/L (3.5-5.1) 3.7 mmol/L (3.5-5.1) Chloride Level 109 mmol/L (98-107) 110 mmol/L (98-107) Carbon Dioxide Level 28 mmol/L (21-32) 29 mmol/L (21-32) Anion Gap 6 (6-14) 5 (6-14) Blood Urea Nitrogen 13 mg/dL (7-20) 11 mg/dL (7-20) Creatinine 0.9 mg/dL (0.6-1.0) 0.9 mg/dL (0.6-1.0) Estimated GFR (Cockcroft-Gault) 59.2 59.2 Glucose Level 104 mg/dL (70-99) 91 mg/dL (70-99) Calcium Level 8.0 mg/dL (8.5-10.1) 8.3 mg/dL (8.5-10.1) BUN/Creatinine Ratio 12 (6-20) Total Bilirubin 0.4 mg/dL (0.2-1.0) Aspartate Amino Transf (AST/SGOT) 15 U/L (15-37) Alanine Aminotransferase (ALT/SGPT) 18 U/L (14-59) Alkaline Phosphatase 85 U/L (46-116) Total Protein 5.4 g/dL (6.4-8.2) Albumin 2.7 g/dL (3.4-5.0) Albumin/Globulin Ratio 1.0 (1.0-1.7) Laboratory Tests Test 01/23/17 17:50 01/24/17 03:25 White Blood Count 8.5 x10^3/uL (4.0-11.0) 6.8 x10^3/uL (4.0-11.0) Red Blood Count 3.17 x10^6/uL (3.50-5.40) 2.93 x10^6/uL (3.50-5.40) Hemoglobin 8.8 g/dL (12.0-15.5) 8.2 g/dL (12.0-15.5) Hematocrit 27.3 % (36.0-47.0) 25.7 % (36.0-47.0) Mean Corpuscular Volume 86 fL (79-100) 88 fL (79-100) Mean Corpuscular Hemoglobin 28 pg (25-35) 28 pg (25-35) Mean Corpuscular Hemoglobin Concent 32 g/dL (31-37) 32 g/dL (31-37) Red Cell Distribution Width 16.0 % (11.5-14.5) 15.4 % (11.5-14.5) Platelet Count 208 x10^3/uL (140-400) 194 x10^3/uL (140-400) Sodium Level 144 mmol/L (136-145) Potassium Level 3.7 mmol/L (3.5-5.1) Chloride Level 110 mmol/L (98-107) Carbon Dioxide Level 29 mmol/L (21-32) Anion Gap 5 (6-14) Blood Urea Nitrogen 11 mg/dL (7-20) Creatinine 0.9 mg/dL (0.6-1.0) Estimated GFR (Cockcroft-Gault) 59.2 BUN/Creatinine Ratio 12 (6-20) Glucose Level 91 mg/dL (70-99) Calcium Level 8.3 mg/dL (8.5-10.1) Total Bilirubin 0.4 mg/dL (0.2-1.0) Aspartate Amino Transf (AST/SGOT) 15 U/L (15-37) Alanine Aminotransferase (ALT/SGPT) 18 U/L (14-59) Alkaline Phosphatase 85 U/L (46-116) Total Protein 5.4 g/dL (6.4-8.2) Albumin 2.7 g/dL (3.4-5.0) Albumin/Globulin Ratio 1.0 (1.0-1.7) Medications Active Scripts Medications Dose Route/Sig Max Daily Dose Days Date Category Dulcolax (Bisacodyl) 5 Mg Tablet.dr 5 Mg PO BID PRN 01/20/17 Reported Cyanocobalamin Injection (Cyanocobalamin (Vitamin B-12)) 1,000 Mcg/1 Ml Vial 1 Ml IM QMONTH 01/20/17 Reported Gabapentin 100 Mg Capsule 100 Mg PO TID 10/08/16 Reported Naproxen 375 Mg Tablet 1 Tab PO BID 10/08/16 Reported Citalopram Hbr (Citalopram Hydrobromide) 20 Mg Tablet 1 Tab PO DAILY 10/08/16 Reported Amlodipine Besylate 5 Mg Tablet 5 Mg PO DAILY 10/08/16 Reported Impression . 1. DVT/PE 2. GI bleed . 3. No significant history of tobacco use. 4. Chronic hypoxic respiratory failure, on home oxygen 2-3 liters. Plan . 1. Continue with present oxygen to keep saturation 92% to 94%. 2. has dvt ivc filter placed 01/22,agree not a good candidate for anticoagulation at this time 3. Follow Gastroenterology recommendations. 4. V/Q scan high prob 5. Possilbe outpt sleep study KARIE SETHI MD Jan 24, 2017 15:10
--- NOTE | 2017-01-24 15:48 | CARD ---
APPROVED REPORT EXAM: Two-dimensional and M-mode echocardiogram with Doppler and color Doppler. Other Information Quality : Average Rhythm : NSR INDICATION Dyspnea 2D DIMENSIONS RVDd3.4 (2.9-3.5cm)Left Atrium(2D)3.0 (1.6-4.0cm) IVSd1.1 (0.7-1.1cm)Aortic Root(2D)3.1 (2.0-3.7cm) LVDd4.7 (3.9-5.9cm)LVOT Diameter2.1 (1.8-2.4cm) PWd1.1 (0.7-1.1cm)LVDs2.9 (2.5-4.0cm) FS (%) 34.3 %SV71.6 ml LVEF(%)64.7 (>50%) Aortic Valve AoV Peak Fransico.201.7cm/sAoV VTI41.7cm AO Peak GR.16.3mmHgLVOT VTI 33.23cm AO Mean GR.8mmHgAI P 1/2 [id number] Mitral Valve MV E Yxusgitj21.7cm/sMV E Peak Gr.5mmHg MV DECEL [id number] A Nuyfqjzv01.1cm/s MV MIZ01mgM/A Ratio0.9 MV A Vgovhmbr364enRXW (PHT)3.44cm2 TDI Lateral E' P. V9.97cm/sMedial E' P. V5.82cm/s E/Lateral E'9.4E/Medial E'16.1 Tricuspid Valve TR P. Nmxqtutn595om/sRAP FMHPFESS2xbWe TR Peak Gr.94lmRwDWAM57xyFe Pulmonary Vein S1 Oxvtgmyt06.9cm/sS2 Quncoilb25.53cm/s D2 Yybinoui21.5cm/sPVa ufqvafws243nscb LEFT VENTRICLE The left ventricle is normal size. There is normal left ventricular wall thickness. Left ventricle sy stolic function is normal. The Ejection Fraction is 60-65%. There is normal LV segmental wall motion. The left ventricular diastolic function and filling is normal for age. There is no ventricular septa l defect visualized. RIGHT VENTRICLE The right ventricle is normal size. The right ventricular systolic function is normal. ATRIA The left atrium is mildly dilated. The right atrium size is normal. The interatrial septum is intact with no evidence for an atrial septal defect or patent foramen ovale as noted on 2-D or Doppler imagi ng. AORTIC VALVE The aortic valve is mildly calcified. The aortic valve is trileaflet. Doppler and Color Flow revealed trace to mild aortic regurgitation. There is no significant aortic valvular stenosis. MITRAL VALVE The mitral valve is normal in structure and function. There is no mitral valve stenosis. Doppler and Color Flow revealed mild mitral regurgitation. TRICUSPID VALVE The tricuspid valve is normal in structure and function. Doppler and Color Flow revealed mild tricusp id regurgitation. The PA pressure was estimated at 47 mmHg. There is no tricuspid valve stenosis. PULMONIC VALVE The pulmonic valve is not well visualized. Doppler and Color Flow revealed no pulmonic valvular regur gitation. There is no pulmonic valvular stenosis. GREAT VESSELS The aortic root is normal in size. The ascending aorta is Moderately dilated. Normal pulmonary venous flow (Doppler). The IVC is dilated and collapses >50% with inspiration. PERICARDIAL EFFUSION There is no evidence of significant pericardial effusion. Critical Notification Critical Value: No <Conclusion> Left ventricle systolic function is normal. The Ejection Fraction is 60-65%. There is normal LV segmental wall motion. Doppler and Color Flow revealed mild tricuspid regurgitation. The PA pressure was estimated at 47 mmH g.
[2017-01-24 19:38] VITALS: BP 132/63
[2017-01-24 23:04] VITALS: BP 141/63
[2017-01-25 03:08] VITALS: BP 126/63
[2017-01-25 07:00] VITALS: BP 150/64
[2017-01-25 07:02] LABS: HEMATOCRIT 26.3 % (36.0-47.0); HEMOGLOBIN 8.3 g/dL (12.0-15.5); RED CELL DISTRIBUTION WIDTH 15.3 % (11.5-14.5); WHITE BLOOD COUNT 6.8 x10^3/uL (4.0-11.0)
[2017-01-25] MEDS: IPRATRPIUM/ALBUTEROL 0.5/2.5MG 3 ML NEBU. NEB SCH ×3 (08:00→16:04)
[2017-01-25] MEDS: PANTOPRAZOLE 40 MG TABLET.DR. PO SCH (08:05)
[2017-01-25] MEDS: CITALOPRAM 20 MG TABLET. PO SCH (08:05)
[2017-01-25] MEDS: GABAPENTIN 100 MG CAPSULE. PO SCH ×2 (08:05→14:23)
[2017-01-25] MEDS: amLODIPine BESYLATE 5 MG TABLET PO SCH (08:06)
--- NOTE | 2017-01-25 08:40 | PDOC ---
Provider Note Provider Note [id number] YAYA BARRERA MD Jan 25, 2017 08:40
--- NOTE | 2017-01-25 08:54 | PDOC ---
PULMONARY PROGRESS NOTES Subjective PT NOT MORE SOA FEELS BETTER Vitals Vital Signs Date Time Temp Pulse Resp B/P (MAP) Pulse Ox O2 Delivery O2 Flow Rate FiO2 01/25/17 08:13 91 Nasal Cannula 4.0 01/25/17 08:06 63 150/64 01/25/17 07:00 99.9 18 99.9 ROS: No Nausea, No Chest Pain, No Abdominal Pain, No Increase Cough General: Alert HEENT: Other (nc at perrl, nose throat clear) Lungs: Clear Cardiovascular: S1, S2 Abdomen: Soft, Non-tender Neuro Exam: Alert Extremities: Other (edema) Skin: Warm Labs Laboratory Tests Test 01/23/17 17:50 01/24/17 03:25 01/25/17 05:40 White Blood Count 8.5 x10^3/uL (4.0-11.0) 6.8 x10^3/uL (4.0-11.0) 6.8 x10^3/uL (4.0-11.0) Red Blood Count 3.17 x10^6/uL (3.50-5.40) 2.93 x10^6/uL (3.50-5.40) 3.00 x10^6/uL (3.50-5.40) Hemoglobin 8.8 g/dL (12.0-15.5) 8.2 g/dL (12.0-15.5) 8.3 g/dL (12.0-15.5) Hematocrit 27.3 % (36.0-47.0) 25.7 % (36.0-47.0) 26.3 % (36.0-47.0) Mean Corpuscular Volume 86 fL (79-100) 88 fL (79-100) 88 fL (79-100) Mean Corpuscular Hemoglobin 28 pg (25-35) 28 pg (25-35) 28 pg (25-35) Mean Corpuscular Hemoglobin Concent 32 g/dL (31-37) 32 g/dL (31-37) 32 g/dL (31-37) Red Cell Distribution Width 16.0 % (11.5-14.5) 15.4 % (11.5-14.5) 15.3 % (11.5-14.5) Platelet Count 208 x10^3/uL (140-400) 194 x10^3/uL (140-400) 189 x10^3/uL (140-400) Sodium Level 144 mmol/L (136-145) Potassium Level 3.7 mmol/L (3.5-5.1) Chloride Level 110 mmol/L (98-107) Carbon Dioxide Level 29 mmol/L (21-32) Anion Gap 5 (6-14) Blood Urea Nitrogen 11 mg/dL (7-20) Creatinine 0.9 mg/dL (0.6-1.0) Estimated GFR (Cockcroft-Gault) 59.2 BUN/Creatinine Ratio 12 (6-20) Glucose Level 91 mg/dL (70-99) Calcium Level 8.3 mg/dL (8.5-10.1) Total Bilirubin 0.4 mg/dL (0.2-1.0) Aspartate Amino Transf (AST/SGOT) 15 U/L (15-37) Alanine Aminotransferase (ALT/SGPT) 18 U/L (14-59) Alkaline Phosphatase 85 U/L (46-116) Total Protein 5.4 g/dL (6.4-8.2) Albumin 2.7 g/dL (3.4-5.0) Albumin/Globulin Ratio 1.0 (1.0-1.7) Laboratory Tests Test 01/25/17 05:40 White Blood Count 6.8 x10^3/uL (4.0-11.0) Red Blood Count 3.00 x10^6/uL (3.50-5.40) Hemoglobin 8.3 g/dL (12.0-15.5) Hematocrit 26.3 % (36.0-47.0) Mean Corpuscular Volume 88 fL (79-100) Mean Corpuscular Hemoglobin 28 pg (25-35) Mean Corpuscular Hemoglobin Concent 32 g/dL (31-37) Red Cell Distribution Width 15.3 % (11.5-14.5) Platelet Count 189 x10^3/uL (140-400) Medications Active Scripts Medications Dose Route/Sig Max Daily Dose Days Date Category Dulcolax (Bisacodyl) 5 Mg Tablet.dr 5 Mg PO BID PRN 01/20/17 Reported Cyanocobalamin Injection (Cyanocobalamin (Vitamin B-12)) 1,000 Mcg/1 Ml Vial 1 Ml IM QMONTH 01/20/17 Reported Gabapentin 100 Mg Capsule 100 Mg PO TID 10/08/16 Reported Naproxen 375 Mg Tablet 1 Tab PO BID 10/08/16 Reported Citalopram Hbr (Citalopram Hydrobromide) 20 Mg Tablet 1 Tab PO DAILY 10/08/16 Reported Amlodipine Besylate 5 Mg Tablet 5 Mg PO DAILY 10/08/16 Reported Impression . 1. DVT/PE 2. GI bleed . 3. No significant history of tobacco use. 4. Chronic hypoxic respiratory failure, on home oxygen 2-3 liters. Plan . 1. Continue with present oxygen to keep saturation 92% to 94%. 2. has dvt ivc filter placed 01/22,agree not a good candidate for anticoagulation at this time 3. Follow Gastroenterology recommendations. 4. V/Q scan high prob 5. Possilbe outpt sleep study KARIE SETHI MD Jan 25, 2017 08:54
[2017-01-25 11:00] VITALS: BP 118/58
--- NOTE | 2017-01-25 13:04 | PDOC ---
Subjective: Subjective: Small brown-colored stool this a.m. surrounded by dark red blood. Eating well today, vomited last night after tomato soup. Objective: Objective: Daughter asked RN to page me this morning. Possible DC today. Wanted to know if okay to take iron, what to do if bleeding recurs, concerned w / possibility of OAC. Per RN - unaware of any bleeding today. Vital Signs: Vital Signs Date Time Temp Pulse Resp B/P (MAP) Pulse Ox O2 Delivery O2 Flow Rate FiO2 01/25/17 11:24 Nasal Cannula 3.0 01/25/17 11:00 97.9 65 18 118/58 (78) 92 97.9 Labs: Laboratory Tests Test 01/25/17 05:40 White Blood Count 6.8 x10^3/uL Red Blood Count 3.00 x10^6/uL Hemoglobin 8.3 g/dL Hematocrit 26.3 % Mean Corpuscular Volume 88 fL Mean Corpuscular Hemoglobin 28 pg Mean Corpuscular Hemoglobin Concent 32 g/dL Red Cell Distribution Width 15.3 % Platelet Count 189 x10^3/uL PE: GEN: NAD LUNGS: decreased HEART: RRR ABD: NABS, S/ND/NT NEURO/PSYCH: A & O 3 A/P: Hematochezia - slowing -bleeding scan neg, Hgb dropped but now stable in 8s -last colonoscopy 2002, has diverticulosis and hemorrhoids, also h/o constipation -on PPI, tolerating PO PE, DVT s/p IVC filter placement -- Spoke w/ pt's daughter via phone, all her questions were answered to her satisfaction. Monitor labs w/ PCP on iron. Family concerned w/ possible OAC recommendations, requests follow-up w/ Dr. Orozco as outpt - our office will arrange. D/w RN. DC per primary. SABRINA CONNELL Jan 25, 2017 13:03
[2017-01-25 15:00] VITALS: BP 137/65
--- NOTE | 2017-01-25 19:20 | DS ---
DATE OF DISCHARGE: 01/25/2017 HOSPITAL SUMMARY: An 86-year-old white female with oxygen dependent COPD, came in with rectal bleeding. She dropped her hemoglobin from around 12 on admission down to 7.5 and received 1 unit packed cells and hemoglobins has been stable around 8.3. INR was normal. Chemistry profile was within normal limits, except BUN was elevated at 36, creatinine 1.4 on admission and is resolved. GI bleeding in scan showed no sign of active bleeding. Chest CT showed the evidence of suspected pulmonary emboli and the V/Q scan was consistent with a high probability of pulmonary emboli in the right lower lobe and right upper lobe. Doppler study showed evidence of DVT in the right leg. Because of active ongoing bleeding presumably of a diverticular nature, she cannot be anticoagulated and an IVC filter was placed. Hemoglobins have remained stable and vital signs are stable at this point. GI was consulted and felt that intervention endoscopically would be greater risk than benefit as she appears to stop bleeding and echocardiogram was done, which showed normal ejection fraction and no cardiac etiology for her dyspnea. At this point, she will go home with home nebulizer treatments. No oral anticoagulant for at least 1-2 weeks and could certainly add Xarelto when it appears her GI bleeding status is stable and no longer active, as she does have both DVT in her right leg and pulmonary emboli as well. FINAL DIAGNOSES: 1. Acute gastrointestinal bleed, etiology undetermined. 2. Iron deficiency anemia secondary to gastrointestinal bleeding. 3. Pulmonary emboli right upper and lower lobe. 4. Deep vein thrombosis right lower extremity. OPERATIONS AND PROCEDURES: Placement of IVC filter. COMPLICATIONS: None. CONSULTATIONS: Dr. Minaya and Dr. Orozco, Interventional Radiology. DISPOSITION: Iron tablets 1 daily. Home meds remain the same. No aspirin or oral anticoagulant for at least 1-2 weeks. She will use DuoNeb q.i.d. and home oxygen and home meds, otherwise remain the same. We will probably start Xarelto once her GI status appears to stabilize with no further bleeding. We will follow her hemoglobin weekly. Prognosis is guarded. YAYA BARRERA MD DR: SAMIA/vinita JOB#: [id number] / [id number]
== END 2017-01-25 16:40 | disposition home health service (06) | DRG 252 ==
LOC: ER 11:51 → 4 NORTH 13:45
PROVIDERS: ADMIT Family Medicine; ATTEND Family Medicine
PROC: 06H03DZ Insertion of Intraluminal Device into Inferior Vena Cava, Percutaneous Approach (ICD-10-PCS; principal; 2017-01-22)
PROC: 30233N1 Transfusion of Nonautologous Red Blood Cells into Peripheral Vein, Percutaneous Approach (ICD-10-PCS; 2017-01-22)
DX: I82.431 Acute embolism and thrombosis of right popliteal vein (principal); I26.99 Other pulmonary embolism without acute cor pulmonale; J96.21 Acute and chronic respiratory failure with hypoxia; K92.2 Gastrointestinal hemorrhage, unspecified; D62 Acute posthemorrhagic anemia; I82.812 Embolism and thrombosis of superficial veins of left lower extremity; I82.441 Acute embolism and thrombosis of right tibial vein; F32.9 Major depressive disorder, single episode, unspecified; F41.9 Anxiety disorder, unspecified; I10 Essential (primary) hypertension; M19.90 Unspecified osteoarthritis, unspecified site; I27.2 Other secondary pulmonary hypertension; J44.9 Chronic obstructive pulmonary disease, unspecified; Z96.659 Presence of unspecified artificial knee joint; K59.00 Constipation, unspecified; M54.5 Low back pain; K44.9 Diaphragmatic hernia without obstruction or gangrene; Z80.0 Family history of malignant neoplasm of digestive organs; Z82.49 Family history of ischemic heart disease and other diseases of the circulatory system; Z86.718 Personal history of other venous thrombosis and embolism; Z86.711 Personal history of pulmonary embolism; Z99.81 Dependence on supplemental oxygen; K57.90 Diverticulosis of intestine, part unspecified, without perforation or abscess without bleeding
CPT/HCPCS: 36415; 37191; 71250; 74176; 78278; 78582; 80048; 80053; 82274; 85027; 85610; 86850; 86900; 86901; 86920; 93306; 93970; 94250; 94620; 94640; 94760; 96360; 96374; A4215; A9540; A9558; A9560; C1892; J7030; J7620; P9016; Q9967; 97110; 97116; 97535; 99285-25

== ENCOUNTER → 2017-04-08 | Outpatient (CLI) | payer MEDICARE ==
[~2017-04-08] MED LIST changes: +BISA-42 PO; +CYAN10002 IM; +IOHEXOL 300 MG/ML 100ML VIAL. IV ONE
--- NOTE | 2017-04-08 14:52 | KCIC ---
Chest CTA History: Shortness of air, history of pulmonary embolism Technique: After bolus of intravenous contrast, CT imaging was performed of the chest. Multiplanar reconstruction images to include MIP reconstruction images are submitted. Exposure: One or more of the following individualized dose reduction techniques were utilized for this examination: 1. Automated exposure control 2. Adjustment of the mA and/or kV according to patient size 3. Use of iterative reconstruction technique. Contrast: 95 cc Omnipaque 300 Comparison: October 22, 2007 Findings: [ On the previous exam, there were pulmonary emboli in the lower lobe branches bilaterally, have resolved on the left. However there is occlusive pulmonary embolism within branches of the right lower lobe of the anterior basal and lateral basal segments. Main pulmonary artery is somewhat dilated 4 cm. Ascending thoracic aorta is somewhat dilated up to 4 cm as seen previously, no intraluminal flap. There is mild coronary calcification. There is medial deviation of carotid arteries in the neck bilaterally, not fully included. There is moderate to large hiatal hernia containing most of the stomach. There is no pneumothorax or pleural effusion. Mild dependent density right lower lobe more likely due to component of atelectasis. 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 There is inferior vena cava filter present. There is multilevel compression deformity involving T11, T12, L2, L3 of uncertain chronicity, not seen on the 2008 exam. Heart is enlarged. Impression: 1. There is occlusive pulmonary embolism of right lower lobe branches although difficult to determine chronicity. 2. Main pulmonary artery is dilated up to 4 cm, may be seen with pulmonary hypertension. 3. There is similar mild dilatation of the ascending thoracic aorta up to 4 cm. 4. There is moderate to large hiatal hernia containing most of the stomach. 5. There is multilevel compression deformity of T11, T12, L2, and L3 of uncertain chronicity, not present on older 2008 exam. 6. Heart is enlarged. There is mild coronary calcification. FOR INTERNAL CODING PURPOSES Critical result: Findings discussed with nurse Oconnell in the office of Dr. Minaya at 04/08/2017 2:38 PM. RESULT CODE: (C) Electronically signed by: Jian Veras MD (04/08/2017 2:48 PM) [id number]
== END | disposition home or self-care (01) ==
LOC: KCIC CT 08:34
PROVIDERS: ATTEND Internal Medicine Pulmonary Disease
DX: I26.99 Other pulmonary embolism without acute cor pulmonale (principal); K44.9 Diaphragmatic hernia without obstruction or gangrene; Z86.711 Personal history of pulmonary embolism; I51.7 Cardiomegaly; I25.10 Atherosclerotic heart disease of native coronary artery without angina pectoris
CPT/HCPCS: 71275; Q9967